=== PATIENT | female | born 1990 | race Caucasian/White ===

== ENCOUNTER 2020-11-14 13:00 | Outpatient (REF) | payer MEDICAID, SELFPAY | END 2020-11-14 13:01 | disposition home or self-care (01) | LOC: HO.LAB 13:00 | PROVIDERS: Visit Provider Internal Medicine | DX: Z20.828 Contact with and (suspected) exposure to other viral communicable diseases (principal) | CPT/HCPCS: C9803; U0003 ==

== ENCOUNTER → 2021-01-12 12:41 | Outpatient (BNVA) | payer MEDICAID, SELFPAY | PROVIDERS: Visit Provider Nurse Practitioner Gerontology | DX: E11.65 Type 2 diabetes mellitus with hyperglycemia (principal); E78.1 Pure hyperglyceridemia; E66.09 Other obesity due to excess calories; E55.9 Vitamin D deficiency, unspecified | CPT/HCPCS: 82947; 99212 ==

== ENCOUNTER → 2021-02-12 07:39 | Outpatient (BNVA) | payer MEDICAID, SELFPAY | PROVIDERS: Visit Provider Nurse Practitioner Gerontology ==

== ENCOUNTER → 2021-04-16 08:33 | Outpatient (BNVA) | payer MEDICAID, SELFPAY | PROVIDERS: Visit Provider Nurse Practitioner Gerontology | DX: E11.9 Type 2 diabetes mellitus without complications (principal); E78.1 Pure hyperglyceridemia; E66.01 Morbid (severe) obesity due to excess calories; Z68.41 Body mass index [BMI] 40.0-44.9, adult; E55.9 Vitamin D deficiency, unspecified | CPT/HCPCS: 82947; 99212 ==

== ENCOUNTER 2021-04-16 09:28 | Outpatient (REF) | payer MEDICAID, SELFPAY ==
[2021-04-16 10:50] LABS: Cholesterol 145 mg/dL; HDL Cholesterol 37 mg/dL; LDL Cholesterol Calculated 48 mg/dl; Triglycerides 300 mg/dL
[2021-04-17 18:02] LABS: LDL Cholesterol Direct 72 mg/dL (<100)
== END 2021-04-16 09:29 | disposition home or self-care (01) ==
LOC: HO.10HDL 09:28
PROVIDERS: Visit Provider Nurse Practitioner Gerontology
DX: E11.65 Type 2 diabetes mellitus with hyperglycemia (principal)
CPT/HCPCS: 36415; 80061; 83721

== ENCOUNTER → 2021-07-30 11:20 | Outpatient (BNVA) | payer MEDICAID, SELFPAY | PROVIDERS: PCP Nurse Practitioner Family; Visit Provider Nurse Practitioner Gerontology ==

== ENCOUNTER → 2022-01-28 10:14 | Outpatient (BNVA) | payer MEDICAID, SELFPAY | PROVIDERS: PCP Nurse Practitioner Family; Visit Provider Nurse Practitioner Gerontology ==

== ENCOUNTER → 2022-09-06 09:48 | Outpatient (BNVA) | payer MEDICAID, SELFPAY | PROVIDERS: Visit Provider Internal Medicine Gastroenterology | DX: R10.13 Epigastric pain (principal) | CPT/HCPCS: 99202 ==

== ENCOUNTER 2022-11-20 09:31 | Outpatient (REF) | payer MEDICAID, SELFPAY ==
[2022-11-22 14:47] LABS: H Pylori Breath Test Negative (Negative)
== END 2022-11-20 09:32 | disposition home or self-care (01) ==
LOC: HO.LNP 09:31
PROVIDERS: Visit Provider Internal Medicine Gastroenterology
DX: Z11.2 Encounter for screening for other bacterial diseases (principal)
CPT/HCPCS: 83013

== ENCOUNTER 2024-06-08 10:12 | Outpatient (REF) | payer MEDICAID, SELFPAY ==
[2024-06-08 13:30] LABS: Anion Gap 14 (12-20); Blood Urea Nitrogen 7 mg/dL (9-16); Calcium 9.7 mg/dL (8.4-10.2); Carbon Dioxide 25 mmol/L (22-29); Chloride 103 mmol/L (96-108); Cholesterol 160 mg/dL (<200); Estimated Glomerular Filt Rate > 60; Glucose Random 207 mg/dL (60-115); HDL Cholesterol 40 mg/dL (>40); LDL Cholesterol Calculated 72 mg/dL (<100); Potassium 3.8 mmol/L (3.3-5.1); Sodium 138 mmol/L (135-145); Triglycerides 241 mg/dL (<150)
[2024-06-08 13:44] LABS: Vitamin B12 251 pg/mL (200-900)
[2024-06-09 08:33] LABS: HIV AB/AG Nonreactive (Nonreactive); HIV Num 1 0.04 S/CO (0.00-0.99); ~Hepatitis C Antibody Nonreactive (Nonreactive)
[2024-06-09 12:13] LABS: RPR Rapid Plasma Reagin NON-REACTIVE (NON-REACTIVE)
== END 2024-06-08 10:13 | disposition home or self-care (01) ==
LOC: HO.HHCL 10:12
PROVIDERS: Visit Provider Nurse Practitioner Primary Care
DX: E11.69 Type 2 diabetes mellitus with other specified complication (principal); E78.5 Hyperlipidemia, unspecified; Z11.3 Encounter for screening for infections with a predominantly sexual mode of transmission
CPT/HCPCS: 36415; 80048; 80061; 82607; 84443; 86592; 86803; 87389

== ENCOUNTER 2025-01-05 09:20 | Outpatient (REF) | payer MEDICAID, SELFPAY ==
--- OUTSIDE RECORDS SUMMARY | 2025-01-05 09:44 | XMS_ITS | Encounter Summary ---
Author Organization [email or web address] Address [address] [place] [address] 7 [place] [address] Care Team Providers Care Employment Case Manager Name Role Phone Mariam Villa Primary Care Provider [phone] Reason for Visit * Reason Comments Pre-visit Planning SDOH Screening negat tom and Tobacco screening negative Encounter Details Date Type Department Care Team ([facility] st Contact Info) Description 12/29/2024 Patient Outreach [facility] [address] [place], [place] [phone] Mariam Villa ANP [address] [place] [address] Pre-visit Planning (SDOH Screening negative and Tobacco screening negative) Social History Tobacco Use Types Packs/Day Years Used Date Smoking Tobacco: Never Smokeless Tobacco: Never Alcohol Use Standard Drinks/Week Comments Not Currently 0 (1 standard drink = 0.6 oz pur e alcohol) Depression Answer Date Recorded Patient Health Questionnaire-9 Score 7 08/11/2024 Patient Health Questionnaire-9 Score 7 08/11/2024 Last PHQ-9: Questionnaire Data Not on file 0 08/11/2024 Housing Stability Answer Date Recorded What is your housing situation today? I have [place] 02/27/[address] you li ve. Do you have problems with any of the following? None of the above 02/27/2024 Food Insecurity Answer Date Recorded Within the past 12 months, y ou worried that your food would run out before you got money to buy more: Never True 02/27/2024 Within the past 12 months,th e food you bought just didn't last and you didn't have enough money to get more: Never True Transportation Answer Date Recorded In the past 12 months, has l ack of transportation kept you from medical appts, meetings, work or from getting things needed for daily living? No 12/29/2024 Utilities Answer Date Recorded In the past 12 months, has t he electric, gas, oil or water company threatened to shut off services in your home? No 02/27/2024 Depression Answer Date Recorded Patient Health Questionnaire-2 Score 0 08/11/2024 Internet Access Answer Date Recorded Internet Access Q1 Yes 08/02/2024 Internet Access Q2 Not on file 08/02/2024 Comments No Sex and Gender Information Value Date Recorded Sex Assigned at Female 09/30/2022 10:22 AM EDT Legal Sex Female 10:22 AM EDT Gender Identity Female 09/30/2022 10:22 AM EDT Sexual Orientation Straight 09/30/2022 10 :22 AM EDT documented as of this encounter Progress Notes * Silvia Spear - 12/29/2024 3:13 PM EST CC Silvia Baum placed successful outbound call to patient for pre-visit planning. Patient name and confirmed. Patient confirms appt date and time, and has transportation arrangements. Biggest concern for appointment at this time is no concerns. Patient advised to bring to appointment a photo id and insurance card. Appropriate screenings completed in anticipation of appointment. documented in this encounter Plan of Treatment Upcoming Encounters Date Type Department Care Team (Late st Contact Info) Description 01/11/2025 11:30 AM EST Office Visit [facility] [address] [place] [address] Mariam Villa ANP [address] [place] [address] documented as of this encounter Visit Diagnoses Not on filedocumented in this encounter Additional Health Concerns Assessment Noted Time PHQ-9 Depression Total Score: 7 08/11/20 24 4:10 PM EDT documented as of this encounter Care Teams Employment Case Manager Relationship Specialty Start Date End Date Mariam Villa ANP [address] [place] [address] PCP - General Family Medicine 07/31/20 documented as of this encounter
--- OUTSIDE RECORDS SUMMARY | 2025-01-05 09:44 | XMS_ITS | Clinical Summary ---
Author Organization [facility] ity Address [address] [place] [address] Care Team Providers Care Wreath Machine Tender Name Role Phone Unavailable Primary Care Provider Unavailabl e Social History Tobacco Use Types Packs/Day Years Used Date Smoking Tobacco: Never Assessed Sex and Gender Information Value Date Recorded Sex Assigned at Not on file Gender Identity Not on file Sexual Orientation Not on file Plan of Treatment Health Maintenance Due Date Last Done Comments DTaP,Tdap,and Td Vaccines (1 - Tdap) 2010 Hepatitis B Vaccines (1 of 3 - 19+ 3-dose series) 2010 Cervical Cancer Screening: P ap Smear 2012 COVID-19 Vaccine (2023-2 5 season) 2024 Influenza Vaccine (#1) 2024 HIB Vaccines Aged Out No longer eligi ble based on patient's age to complete this topic HPV Vaccines Aged Out No longer eligi ble based on patient's age to complete this topic Hepatitis A Vaccines Aged Out No long er eligible based on patient's age to complete this topic IPV Vaccines Aged Out No longer eligi ble based on patient's age to complete this topic MMR Vaccines Aged Out No longer eligi ble based on patient's age to complete this topic Meningococcal ACWY Vaccine Aged Out N o longer eligible based on patient's age to complete this topic Pneumococcal Vaccine: Pediat rics (0 to 5 Years) and At-Risk Patients (6 to 64 Years) Aged Out No longer eligible b ased on patient's age to complete this topic RSV Immunization Patients Un braulio 20 months Aged Out No longer eligible b ased on patient's age to complete this topic Varicella Vaccines Aged Out No longer eligible based on patient's age to complete this topic
--- OUTSIDE RECORDS SUMMARY | 2025-01-05 09:44 | XMS_ITS | Encounter Summary ---
Author Organization [employer] [facility] Address [address] [place] [address] [address] [place] [address] Care Team Providers Care Genetic Physician Name Role Phone Mariam Villa Primary Care Provider [phone] Encounter Details Date Type Department Care Team (Late st Contact Info) Description 01/01/2023 Orders Only [facility] [address] [place] [phone] Laura Murphy LPN Social History Tobacco Use Types Packs/Day Years Used Date Smoking Tobacco: Never Smokeless Tobacco: Never Alcohol Use Standard Drinks/Week Comments Not Currently 0 (1 standard drink = 0.6 oz pur e alcohol) PHQ-2 Answer Date Recorded Patient Health Questionnaire-2 Score 0 12/30/2022 Depression Answer Date Recorded Patient Health Questionnaire-2 Score 0 12/30/2022 Comments Unknown Sex and Gender Information Value Date Recorded Sex Assigned at Female 09/30/2022 10:22 AM EDT Legal Sex Female 10:22 AM EDT Gender Identity Female 09/30/2022 10:22 AM EDT Sexual Orientation Straight 09/30/2022 10 :22 AM EDT COVID-19 Exposure Response Date Recorded In the last 10 days, have yo u been in contact with someone who was confirmed or suspected to have Coronavirus/COVID-19? No / Unsure 12/30/2022 2:27 PM EST documented as of this encounter Plan of Treatment Upcoming Encounters Date Type Department Care Team (Late st Contact Info) Description 01/11/2025 11:30 AM EST Office Visit [facility] [address] [place] [phone] Mariam Villa ANP [address] [place], [place] [phone] documented as of this encounter Visit Diagnoses Not on filedocumented in this encounter Care Teams Genetic Physician Relationship Specialty Start Date End Date Mariam Villa ANP [address] [place] [address] PCP - General Family Medicine 07/31/20 documented as of this encounter
--- OUTSIDE RECORDS SUMMARY | 2025-01-05 09:44 | XMS_ITS | Clinical Summary ---
Author Organization [employer] Address [address] [place] [address] 7 [place] [address] Care Team Providers Care Machinist Supervisor Outside Name Role Phone Mariam Villa Primary Care Provider [phone] Allergies Active Allergy Reactions Criticality Noted Date Comments Niacin Rash High 09/16/2013 Medications * This document contains information received from the source organization and may not represent a complete record from that organization. ketotifen (Zaditor) 0.025 % ophthalmic solution Administer 1 drop into affected eye(s) every 12 (twelve) hours. 020 Active FREESTYLE LITE test strip TEST BLOOD SUGAR TWICE DAILY 100 each 11 023 Active Continuous Blood Gluc Insurance Assistant (FreeStyle Ganesh 2 [place]) deviceIndication s:Type 2 diabetes mellitus with hyperlipidemia (CMS/HCC) ([facility]) 1 each 5 (five) times a day. 1 each 023 Active acetaminophen (Tylenol 8 Hour) 650 MG ER tabletIndication s:Low back pain radiating to left leg Take 2 tablets (1,300 mg) by mouth every 8 (eight) hours. 30 tablet 023 Active glucose blood (FreeStyle Precision Pal Test) test stripIndications :Type 2 diabetes mellitus with hyperlipidemia (CMS/HCC) ([facility]) Use to test blood sugar 5 times daily 100 each 12 024 2024 Active TRUEplus Lancets 33G misc TEST BLOOD SUGAR TWICE DAILY 100 each 11 024 Active metFORMIN XR (Glucophage-XR) 500 MG 24 hr tabletIndication s:Type 2 diabetes mellitus with hyperlipidemia (CMS/HCC) ([facility]) TAKE 1 TABLET BY MOUTH TWICE DAILY IN THE MORNING AND IN THE EVENING 180 tablet 2 024 Active omega-3 acid ethyl esters (Lovaza) 1 g capsuleIndicatio ns:Hypertriglyce ridemia 2 capsules twice daily 360 capsule 3 Active Continuous Glucose Sensor (FreeStyle Ganesh 2 Sensor) miscIndications: Type 2 diabetes mellitus with hyperlipidemia (CMS/HCC) ([facility]) USE DIRECTED EVERY 14 DAYS 2 each 3 Active Tresiba FlexTouch 100 UNIT/ML injectionIndicat ions:Type 2 diabetes mellitus with hyperlipidemia (CMS/HCC) ([facility]) INJECT 10 UNITS SUBCUTANEOUSLY EVERY DAY 15 mL 1 Active Semaglutide, 2 MG/DOSE, 8 MG/3ML solution pen-injectorIndi cations:Type 2 diabetes mellitus with hyperlipidemia (CMS/HCC) ([facility]) Inject 2 mg under the skin every 7 (seven) days. 3 mL 11 Active cholecalciferol VITAMIN D (Vitamin D-3) 50 MCG (1999 UT) tabletIndication s:Vitamin D deficiency TAKE 1 TABLET BY MOUTH EVERY MORNING 90 tablet 3 024 Active sertraline (Zoloft) 25 MG tabletIndication s:Anxiety TAKE 1 TABLET BY MOUTH AT BEDTIME 90 tablet 3 024 Active pioglitazone (Actos) 15 MG tabletIndication s:Type 2 diabetes mellitus with hyperlipidemia (CMS/HCC) ([facility]) TAKE 1 TABLET BY MOUTH EVERY MORNING 90 tablet 3 Active TechLite Plus [place] 32G X 4 MM miscIndications: Type 2 diabetes mellitus with hyperlipidemia (CMS/HCC) ([facility]) USE DIRECTED 100 each 11 Active cetirizine (ZyrTEC) 10 MG tabletIndication s:Nosebleed TAKE 1 TABLET BY MOUTH EVERY MORNING FOR ALLERGY 90 tablet 3 025 Active omeprazole (PriLOSEC) [address] capsule Take 1 capsule (40 mg) by mouth before breakfast. Do not crush or chew. 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 Type 2 diabetes mellitus with hyperlipidemia (CM S/HCC) 07/22/2022 Overview (08/11/2024): Lab Results Component Value Date HGBA1C 8.7 (A) 06/11/2024 HGBA1C 7.8 (A) 03/08/2024 HGBA1C 9.3 (A) 08/26/2023 Using CGM Tresiba 10 units once daily Metformin XR 1 g twice daily Pioglitazone 15 mg daily Semaglutide 1 mg subcu weekly Metabolic syndrome X 04/06/2013 Depressive disorder 09/07/2012 Hypertriglyceridemia 09/07/2012 Obesity 09/07/2012 Scar contracture 09/07/2012 Encounters Date Type Department Care Team Description 01/03/2025 Refill [facility] [address] [place] [address] Mariam Villa ANP 01/03/2025 Refill [facility] [address] [place] [address] Mariam Villa ANP Nosebleed 12/29/2024 Patient Outreach [facility] [address] [place] [address] Mariam Villa ANP Pre-visit Planning (SDOH Screening negative and Tobacco screening negative) 11/29/2024 Telephone [facility] [address] [place] [phone] Brenda Cho [place] January11/16/2024 10:00 AM EST Clinical Support [facility] [address] [place] [address] Socorro Guillen, CARLY Type 2 diabetes mellitus with hyperlipidemia (CMS/HCC) ([facility]) 11/16/2024 Travel 11/04/2024 Refill [facility] [address] [place] [address] Mariam Villa ANP Vitamin D deficiency; Anxiety; Type 2 diabetes mellitus with hyperlipidemia (CMS/HCC) (CMS/HCC) 10/05/2024 11:30 AM EST Office Visit [facility] [address] [place] [address] Mariam Villa ANP Type 2 diabetes mellitus with hyperlipidemia (CMS/HCC) ([facility]) (Primary Dx); Right wrist tendonitis; Encounter for immunization; Acute right ankle pain; Chronic diarrhea 10/05/2024 Travel from Last 3 Months Immunizations Name Administration Dates Next Due Hep B, adult 09/11/2016,04/03/2016,01/11/2016 Influenza Injectable Quadriv alant Preservative Free IIV4 MDCK 12/28/2020 Influenza injectable quadriv alent IIV4 with preservative 08/26/2017,08/19/2016,11/20/2015 Influenza injectable quadriv alent preservative free 08/26/2023,12/30/2022,10/01/2021,02/09,12/03/2018 Influenza, Split (incl. [place] antigen) 09/16/2013,09/07/2012 Influenza, seasonal, injecta ble, preservative free 10/05/2024 Moderna Covid-19 Vaccine 6+ Bivalent 12/30/2022 Pneumococcal Conjugate PCV 20 06/11/2024 Pneumococcal Polysaccharide PPSV23 12/03/2018 Tdap 04/03/2017,09/07/2012 Social History Tobacco Use Types Packs/Day Years Used Date Smoking Tobacco: Never Smokeless Tobacco: Never Tobacco Cessation:Counseling Given: Not Answered Alcohol Use Standard Drinks/Week Comments Not Currently [...] Orientation Straight 09/30/2022 10 :22 AM EDT Last Filed Vital Signs Vital Sign Reading Time Taken Comments Blood Pressure 135/81 10/05/2024 11:34 AM EST Pulse 89 10/05/2024 11:34 AM EST Temperature 36.3 ??C (97.3 ??F) 10/05/2024 11:[address] Respiratory Rate 20 06/11/2024 9:41 AM EDT Oxygen Saturation 98% 10/05/2024 11:34 AM EST Inhaled Oxygen Concentration - - Weight 111 kg (245 lb 3.2 oz) 10/05/2024 11:34 A M EST Height 158.8 cm (5' 2.5 ) 06/11/2024 9:41 AM EDT Body Mass Index 44.13 06/11/2024 9:41 AM EDT Plan of Treatment Upcoming Encounters Date Type Department Care Team (Late st Contact Info) Description 01/11/2025 11:30 AM EST Office Visit [facility] [address] [place] [address] Mariam Villa ANP [address] [place] [address] Health Maintenance Due Date Last Done Comments Eye Exam 2001 Alcohol/Substance Use Screening 2003 Diabetes: Urine Protein Screening 07/09/2023 07/09/2022, 11/21/2020 Dental Oral Exam 12/12/2023 06/10/2023, , 11/02/2012 Dental Prophylaxis 12/12/2023 06/10/2023 Dental X-Ray: Bitewings 06/11/2024 06/10/20 23, 05/09/2023, 10/16/2022, Additional history exists COVID-19 Vaccine ( season) 2024 12/30/2022, 12/08/2021, 03/06/2021 Pap Smear 11/21/2024 11/21/2021 Diabetes: Hemoglobin A1C 01/05/2025 024, 06/11/2024, 03/08/2024, Additional history exists Diabetes: Foot Exam 03/08/2025 03/08/2024, 03/08/2024, 03/08/2024, Additional history exists Family Planning (PISQ) 04/01/2025 04/01/2024 Lipid Panel 06/08/2025 06/08/2024, 02/0 12/2022, 07/09/2022, Additional history exists Depression Screening 08/11/2025 08/11/2024, 12/30/19 23 Tobacco Screening 10/05/2025 10/05/2024 Dental X-Ray: Full Mouth 10/17/2025 10/16/2022, 10/02 SDOH Screening 12/29/2025 12/29/2024 Cervical Cancer Screening 11/21/2026 HPV/Cotest 11/21/2026 11/21/2021 DTaP/Tdap/Td Vaccines (3 - Td or Tdap) 04/03/2027 04/03/2017, 09/07/2012 Zoster Vaccines (1 of 2) 2041 RSV Patients and Patients Aged 60 years or older (1 - 1-dose 75+ series) 2066 Hepatitis B Vaccines Completed 09/11/2016, 04/03/2016, 01/11/2016 HIV Screening Completed 06/08/2024 Hepatitis C Screening Completed 06/08/2024 Pneumococcal Vaccine: Pediatrics (0 to 5 Years) and At-Risk Patients (6 to 49) Years) Completed 06/11/2024, 12/03/2018 Influenza Vaccine Completed 10/05/2024, , 12/30/2022, Additional history exists HIB Vaccines Aged Out No longer eligi [...] patient's age to complete this topic Meningococcal Vaccine Aged Out No maci pablo eligible based on patient's age to complete this topic RSV under 20 months Aged Out No longe r eligible based on patient's age to complete this topic Rotavirus Vaccines Aged Out No longer eligible based on patient's age to complete this topic Procedures Procedure Name Priority Date/Time Associated Diagnosis Comments POCT GLYCATED HEMOGLOBIN, TOTAL Routine 10/05/2024 11:45 AM EST Type 2 diabetes mellitus with hyperlipidemia (CMS/HCC) ([facility]) POCT GLUCOSE Routine 10/05/2024 11:41 AM EST Type 2 diabetes mellitus with hyperlipidemia (CMS/HCC) ([facility]) HEPATITIS C AB W/REFL TO HCV RNA, QN, PCR Routine 06/08/2024 10:14 AM EDT Routine screening for STI (sexually transmitted infection) HIV 1/2 ANTIGEN/ANTIBODY, FOURTH GENERATION W/RFL Routine 06/08/2024 10:14 AM EDT Routine screening for STI (sexually transmitted infection) LIPID PANEL, STANDARD Routine 06/08/2024 10:14 AM EDT Type 2 diabetes mellitus with hyperlipidemia (CMS/HCC) ([facility]) PROPHYLAXIS - ADULT Routine 06/10/2023 2 :00 PM EDT Dental caries Gingivitis Encounter for dental examination BITEWINGS - 4 RADIOGRAPHIC IMAGES Routine 06/10/2023 2:00 PM EDT Dental caries Gingivitis Encounter for dental examination PERIODIC ORAL EVALUATION - ESTABLISHED PATIENT Routine 06/10/2023 2:00 PM EDT Dental caries Gingivitis Encounter for dental examination DIAGNOSTIC - DIAGNOSTIC IMAGING - INTRAORAL - COMPREHENSIVE SERIES OF RADIOGRAPHIC IMAGES Routine 10/16/2022 12:00 AM EST ALBUMIN, RANDOM URINE W/CREATININE Routine 07/09/2022 9:11 AM EDT THINPREP IMAGING PAP AND HPV MRNA E6/E7 WITH REFLEX TO HPV 16,18/45 Routine 11/21/2021 10:36 AM EST from Last 3 Months or Most Recently Relevant to Health Maintenance Results * (ABNORMAL) POCT HGB A1C (10/05/2024 11:45 AM EST) Hemoglobin A1C 8.6(A) 4.0 - 6.0 % QC Media Lot # [id number] Lot# Expiration Date Blood 10/05/2024 11:4 5 AM EST us Mariam Villa ANP POINT OF CARE TEST ENTER/EDIT OR DERABLES Final Result * POCT Glucose (10/05/2024 11:41 AM EST) Glucose Blood, POC 174 60 - 200 mg/dL QC Media Lot # [id number] Lot# Expiration Date ,025 Blood Capillary blood specimen / Unknown 10/05/2024 11:41 AM EST us Mariam Vlila ANP POINT OF CARE TEST ENTER/EDIT OR DERABLES Final Result * Hepatitis C Antibody with Reflex to HCV, RNA, Quantitative, Real-Time PCR (06/08/2024 10:14 AM EDT) Hepatitis C Antibody Nonreactive Nonreactive [facility] Comment:Antibodies to HCV no t detected; does not exclude early acuteHCV infection. Blood Venous blood specimen / Unknown 06/08/2024 10:14 AM EDT 06/08/2024 11:17 AM EDT us Mariam Villa ANP LAB BLOOD ORDERABLES Final Resul t [facility] [address] [place] [address] [phone] * HIV-1/2 Antigen and Antibodies, Fourth Generation, with Reflexes (06/08/2024 10:14 AM EDT) HIV AB/AG Nonreactive Nonreactive [facility] Comment:HIV-1 p24 Ag and/or HIV-1/HIV-2 Ab not detected.A test result that is nonreactive does not exclude thepossibility of exposure to or infection with HIV-1 and/orHIV-2. Nonreactive results in this assay for individualswith prior exposure to HIV-1 and/or HIV-2 may be due toantigen and antibody levels that are below the limit ofdetection of this assay.The iVengo HIV Ag/Ab Combo assay result andsupplemental assay results should be interpreted inconjunction with the patient's clinical presentation,history and other laboratory results. If the results areinconsistent with clinical evidence, additional testing issuggested to confirm the result. Blood Venous blood specimen / Unknown 06/08/2024 10:14 AM EDT 06/08/2024 11:17 AM EDT [facility] LAB BLOOD ORDERABLES Final Resul t Performing Organization Address [facility] Co de Phone Number [facility] [address] [place] [address] [phone] * (ABNORMAL) Lipid Panel, Standard (06/08/2024 10:14 AM EDT) Triglycerides 241(H) <150 mg/dL [facility] Comment:Desirable Triglyceri de: less than 150 mg/dLBorderline High Triglyceride 150-199 mg/dLHigh Triglyceride: 200-499 mg/dLVery High Triglyceride: greater than or equal to 5OO mg/dL Cholesterol 160 <200 mg/dL [facility] Comment:Desirable Cholestero l: less than 200 mg/dLBorderline High Cholesterol: 200-239 mg/dLHigh Cholesterol: greater than 239 mg/dL LDL Cholesterol Calculated 72 <100 mg/dL [facility] Comment:Desirable LDL: less than 100 mg/dLNear Optimal/Above Optimal LDL: 110- 129 mg/dLBorderline High LDL: 130-159 mg/dLHigh LDL: 160-189 mg/dLVery High LDL: greater than or equal to 190 mg/dL HDL Cholesterol 40(L) >40 mg/dL [facility] Comment:Desirable HDL: great er than 40 mg/dL Note: This HDL assay may give artificially low results in patients with liver disease. Blood Venous blood specimen / Unknown 06/08/2024 10:14 AM EDT 06/08/2024 12:50 PM EDT us Mariam Villa ANP LAB BLOOD ORDERABLES Final Resul t Performing Organization Address [facility]/ZIP Co de Phone Number [facility] [address] [place] [address] [phone] * (ABNORMAL) ALBUMIN, RANDOM URINE W/CREATININE (07/09/2022 9:11 AM EDT) Microalbumin Urine 2.8 See Note: mg/dL [facility] Comment: Reference Range: ?? Reference Range Not established Microalb/Creat Ratio 55(H) <30 mcg/mg creat [facility] Comment: ?? The ADA defines abnormalities in albumin excretion as follows: ?? Albuminuria Category ?Result (mcg/mg creatinine) ?? Normal to Mildly increased ?? <30 Moderately increased ? 30-299 ?? Severely increased ? > OR = 300 ?? The ADA recommends that at least two of three specimens collected within a 3-6 month period be abnormal before considering a patient to be within a diagnostic category. Creatinine, Urine 51 20 - 275 mg/dL [facility] 07/09/2022 9:11 AM EDT us Mariam Villa ANP LAB URINE ORDERABLES Final Resul t Performing Organization Address [facility]/ZIP Co de Phone Number [facility] [address] [place] [address], * THINPREP TIS PAP AND HPV mRNA E6/E7 WITH REFLEX TO HPV 16,18/45 (11/21/2021 10:36 AM EST) Clinical Information: None given [facility] COMMENT SEE COMMENT [facility] Comment: EXPLANATORY NOTE: ? The Pap is a screening test for cervical cancer. It is ?? not a diagnostic test and is subject to false negative ?? and false positive results. It is most reliable when a ?? satisfactory sample, regularly obtained, is submitted ?? with relevant clinical findings and history, and when ?? the Pap result is evaluated along with historic and ?? current clinical information. ?? COMMENT: This Pap test has been evaluated with computer assisted technology. [facility] Food Critic: SEE COMMENT [facility] Comment: ZAN DAMON(ASCP) CT screening location: [address] ??[id number] HPV nRNA E6/E7 Not Detected Not Detected [facility] Comment: Methodology: Windows Phone Developer-Mediated Amplification This assay detects E6/E7 viral messenger RNA (mRNA) from 14 high-risk HPV types (16,18,31,33,35,39,45,51,52,56,58,59,66,68). ? The analytical performance characteristics of this assay have been determined by [employer]. The modifications have not been cleared or approved by the FDA. This assay has been validated pursuant to the CLIA regulations and is used for clinical purposes. ?? For additional information, please refer to http://education.[employer].Coravin/faq/BWZ599p4 (This link if provided for information/ educational purposes only.) Interpretation/Re sult: Negative for intraepithelial lesion or malignancy. [facility] LMP: 11/05/2021 [facility] Prev. BX: NONE GIVEN [facility] Prev. PAP: NONE GIVEN [facility] SOURCE: None given [facility] Statement Of Adequacy: SEE COMMENT [facility] Comment: Satisfactory for evaluation. Endocervical/transformation zone component present. 11/21/2021 10:3 6 AM EST Beatriz GRIDER LAB PATHOLOGY ORDERABLES Final Result [facility] [address] from Last 3 Months or Most Recently Relevant to Health Maintenance Insurance [place] [facility] MEDICAID STAND ADULT Care Teams Machinist Supervisor Outside Relationship Specialty Start Date End Date Mariam Villa ANP [address] [place] [phone] PCP - General Family Medicine 07/31/20
--- OUTSIDE RECORDS SUMMARY | 2025-01-05 09:44 | XMS_ITS | Continuity of Care Document ---
Author Organization [facility] Address [address] [place] [address] Phone Care Team Providers Care Outreach Manager Name Role Phone Sera LOUIS Godwin Unavailable Unavailabl e Allergies, Adverse Reactions, Alerts Substance Reaction Status [...] Diagnoses Date Provider Providers Copied on Encounter [facility], [address] [place] [address], [id number], [place] tel:[phone] [place] [facility] Dental examination Sep-0 201 5 Sera Connelly. [address] [place] [address], [id number] [place], [place], [id number], [place]. tel:[phone] Referring Provider: Godwin Zamora, Shelley [facility] [id number] [place], [address] . tel:[phone] [facility], [address] [place] [address], [address], [place] tel:[phone] [place] [facility] Dental examination 5 No Information [facility], [address], [place], [address], [phone] [place] Dental Dental examination 4 Sera Connelly. [address], [id number] [place], [place], [id number], . tel:[phone] Referring Provider: Godwin Arjayleenharitrisha, [address] [id number] [place], [address] . tel:[phone] [facility], [address], [place], [place], [facility], tel:[phone] [place] [facility] Dental examination 4 Lucho Morales. [address], [id number] [place], [id number], . tel:[phone] Referring Provider: Andrew Yepez, [address] [id number] [address] [place] [address], [address] . tel:[phone] Family History Family Member Type Diagnosis Age At Onset No Information Payers Payer name Insurance type Covered libertarian ID Ashleybilly catalan(patt) Talita Slide [id number] Social History Type Description Quantity Date Captured [...]
--- OUTSIDE RECORDS SUMMARY | 2025-01-05 09:44 | XMS_ITS | Encounter Summary ---
Author Organization [employer] Address [address] [facility] 7 [place] [address] Care Team Providers Care Flame Hardener Name Role Phone Mariam Villa Primary Care Provider [phone] Encounter Details Date Type Department Care Team (Late st Contact Info) Description 01/03/2025 Refill [facility] [address] [place], [place] [phone] Mariam Villa ANP [address] [place] [address] Social History Tobacco Use Types Packs/Day Years [...] AM EDT documented as of this encounter Plan of Treatment Upcoming Encounters Date Type Department Care Team (Late st Contact Info) Description 01/11/2025 11:30 AM EST Office Visit [facility] [address] [place] [phone] Mariam Villa ANP [address] [place] [address] documented as of this encounter Visit Diagnoses Not on filedocumented in this encounter Additional Health Concerns Assessment Noted Time PHQ-9 Depression Total Score: 7 08/11/20 24 4:10 PM EDT documented as of this encounter Care Teams Flame Hardener Relationship Specialty Start Date End Date Mariam Villa ANP [address] [place] [phone] PCP - General Family Medicine 07/31/20 documented as of this encounter
--- OUTSIDE RECORDS SUMMARY | 2025-01-05 09:44 | XMS_ITS | Encounter Summary ---
Author Organization [employer] Address [address] [place] [address] 7 [place] [address] Care Team Providers Care Histologic Technician Name Role Phone Mariam Villa Primary Care Provider [phone] Reason for Visit * Reason Comments Med Refill Encounter Details Date Type Department Care Team ([facility] st Contact Info) Description 01/03/2025 Refill [facility] [address] [place], [place] [phone] Mariam Villa ANP [address] [place] [address] Nosebleed Social History Tobacco Use Types Packs/Day Years [...] Description 01/11/2025 11:30 AM EST Office Visit [facility] MEDICINE [address] [place] [address] Mariam Villa ANP [address] [place] [address] documented as of this encounter Visit Diagnoses Diagnosis Nosebleed Epistaxis documented in this encounter Additional Health Concerns Assessment Noted Time PHQ-9 Depression Total Score: 7 08/11/20 24 4:10 PM EDT documented as of this encounter Care Teams Histologic Technician Relationship Specialty Start Date End Date Mariam Villa ANP [address] [place] [phone] PCP - General Family Medicine 07/31/20 documented as of this encounter
--- OUTSIDE RECORDS SUMMARY | 2025-01-05 09:45 | XMS_ITS | Encounter Summary ---
Author Organization [employer] Address [address] [place] [address] 7 [place] [address] Care Team Providers Care Candy Department Manager Name Role Phone Mariam Villa Primary Care Provider [phone] Reason for Visit * Reason Comments Med Refill Encounter Details Date Type Department Care Team ([facility] st Contact Info) Description 12/08/2023 Refill [facility] MEDICINE [address] [place], [place] [phone] Mariam Villa ANP [address] [place], [place] [phone] Vitamin D deficiency; Type 2 diabetes mellitus with hyperlipidemia ([facility]) Social History Tobacco Use Types Packs/Day Years Used Date Smoking Tobacco: Never Smokeless Tobacco: Never Alcohol Use Standard Drinks/Week Comments Not Currently 0 (1 standard drink = 0.6 oz pur e alcohol) PHQ-2 Answer Date Recorded Patient Health Questionnaire-2 Score 0 12/30/2022 Housing Stability Answer Date Recorded What is your housing situation today? I have [place] 09/15/[address] you li ve. Do you have problems with any of the following? None of the above 09/15/2023 Food Insecurity Answer Date Recorded Within the past 12 months, y ou worried that your food would run out before you got money to buy more: Never True 09/15/2023 Within the past 12 months,th e food you bought just didn't last and you didn't have enough money to get more: Never True Transportation Answer Date Recorded In the past 12 months, has l ack of transportation kept you from medical appts, meetings, work or from getting things needed for daily living? No 09/15/2023 Utilities Answer Date Recorded In the past 12 months, has t he electric, gas, oil or water company threatened to shut off services in your home? No 09/15/2023 Depression Answer Date Recorded Patient Health Questionnaire-2 [...] Office Visit [facility] MED[facility]INE [address] [place] [phone] Mariam Villa ANP [address] [place] [phone] documented as of this encounter Visit Diagnoses Diagnosis Vitamin D deficiency Type 2 diabetes mellitus with hyperlipidemia (CMS/HCC) (CMS/HCC) documented in this encounter Care Teams Candy Department Manager Relationship Specialty Start Date End Date Mariam Villa ANP [address] [place] [phone] PCP - General Family Medicine 07/31/20 documented as of this encounter
[2025-01-05 11:36] LABS: TSH reflex Free T4 1.79 uIU/mL (0.32-4.0)
[2025-01-05 11:47] LABS: Creatinine Urine 112.55 mg/dL; Microalbum/Creatinine Ratio Ur 7.9 ug/mg cr (<30)
== END 2025-01-05 09:21 | disposition home or self-care (01) ==
LOC: HO.HHCL 09:20
PROVIDERS: Visit Provider Nurse Practitioner Primary Care
DX: E11.69 Type 2 diabetes mellitus with other specified complication (principal); E78.5 Hyperlipidemia, unspecified
CPT/HCPCS: 36415; 82043; 82570; 84443

== ENCOUNTER 2025-04-12 11:15 | Outpatient (REF) | payer MEDICAID, SELFPAY ==
--- OUTSIDE RECORDS SUMMARY | 2025-04-12 12:43 | XMS_ITS | Encounter Summary ---
Author Organization [employer] Address [address] [facility] 7 [place] [address] Care Team Providers Care Quill Skinner Name Role Phone Mariam Villa Primary Care Provider [phone] Reason for Visit * Reason Onset Date Comments Prior Authorization 04/11/2025 Encounter Details Date Type Department Care Team (Late st Contact Info) Description 04/11/2025 Telephone [facility] MEDICINE [address] [place], [place] [phone] Mariam Villa ANP [address] [place] [address] Prior Authorization Social History Tobacco Use Types Packs/Day Years [...] AM EDT documented as of this encounter Miscellaneous Notes * Telephone Encounter - Halley Stroud RN - 04/11/2025 4:14 PM EDT Faxed signed packet to [employer], confirmation received. * Telephone Encounter - Halley Stroud RN - 04/11/2025 1:30 PM EDT Prepared CGM packet, placed on PCP desk for signature. * Telephone Encounter - Halley Stroud RN - 04/11/2025 1:29 PM EDT ----- Message from Mariam Villa sent at 04/11/2025 12:03 PM EDT ----- Please initiate PA for freestyle yasemin 3 plus - her freestyle 2 sensors keep falling off, even withover-sticker documented in this encounter Plan of Treatment Upcoming Encounters Date Type Department Care Team (Late st Contact Info) Description 07/04/2025 11:15 AM EDT Office Visit [facility] MEDICINE [address] [place] [phone] Mariam Villa, NAILA [address] [place] [address] documented as of this encounter Visit Diagnoses Not on filedocumented in this encounter Additional Health Concerns Assessment Noted Time PHQ-9 Depression Total Score: 7 08/11/20 24 4:10 PM EDT documented as of this encounter Care Teams Quill Skinner Relationship Specialty Start Date End Date Mariam Villa ANP [address] [place] [address] PCP - General Family Medicine 07/31/20 documented as of this encounter
--- OUTSIDE RECORDS SUMMARY | 2025-04-12 12:43 | XMS_ITS | Encounter Summary ---
Author Organization [employer] Address [address] [facility] 7t [place] [address] Care Team Providers Care Senior Hardware Engineer Name Role Phone Mariam Villa Primary Care Provider Encounter Details Date Type Department Care Team (Latest Contact Info) Description 04/11/2025 11:15 AM EDT Office Visit [facility] MEDICINE [address] [place], [place] [phone] Mariam Villa ANP [address] [place], [place] [phone] Hypertriglyceridemia (Primary Dx); Type 2 diabetes mellitus with hyperlipidemia (CMS/HCC) (CMS/HCC); Muscle cramp; Type 2 diabetes mellitus with hyperlipidemia (CMS/HCC) (CMS/HCC) Social History Tobacco Use Types Packs/Day Years [...] AM EDT documented as of this encounter Last Filed Vital Signs Vital Sign Reading Time Taken Comments Blood Pressure 129/79 04/11/2025 11:28 AM EDT Pulse 75 04/11/2025 11:28 AM EDT Temperature 36.7 ??C (98 ??F) 04/11/2025 11:28 AM EDT Respiratory Rate 20 04/11/2025 11:28 AM EDT Oxygen Saturation 98% 04/11/2025 11:28 AM EDT Inhaled Oxygen Concentration - - Weight 110 kg (242 lb) 04/11/2025 11:28 AM EDT Height 158.8 cm (5' 2.5 ) 04/11/2025 11:28 AM ED T Body Mass Index 43.56 04/11/2025 11:28 AM EDT documented in this encounter Progress Notes * NAILA Ross - 04/11/2025 11:15 AM EDT Subjective Patient ID: Katya Hernandez is a 34 y.o. female who presents for DM. HPI PMH DM, metabolic syndrome, acid reflux H/o cholecystectomy Lab Results Component Value Date HGBA1C 7.3 (A) 04/11/2025 HGBA1C 7.5 (A) 01/11/2025 HGBA1C 8.6 (A) 10/05/2024 HGBA1C 8.7 (A) 06/11/2024 Plan from last visit for reference: She does not want to switch her Ozempic to Mounjaro because she is afraid of acid reflux which I believe she did get from using Trulicity. We are currently maxed on her Ozempic dose. We will try increasing her metformin to 1 g twice daily and hopefully we will be able to stop her pioglitazone at some time in the future. She will continue to try to exercise regularly and adhere toa diabetic diet. She has had calf cramps for 3 years but they are worse more recently. She recently went [place] in the pool got cramps so bad in the pool she had to stop and people had to help her out of pool. Drinks 4 bottles water daily. She also has low back pain. Walks twice daily for 15min. Asked her to please increase this. her freestyle 2 sensors keep falling off, even with over-sticker. Review of CGM data shows most fasting in high 100's to mid-200's, no hypoglycemia. Not sexually active at present. LMP regular, lasts 2-3d. Kisha Esparza, medical art therapist, provided Tristanian interpretation. Review of Systems Constitutional: Negative for chills and fever. HENT: Negative for sore throat. Respiratory: Negative for cough and shortness of breath. Cardiovascular: Negative for chest pain. Gastrointestinal: Negative for constipation and diarrhea. Endocrine: Negative for polydipsia, polyphagia and polyuria. Genitourinary: Negative for dysuria. Musculoskeletal: Positive for arthralgias. Muscle cramps BLE Neurological: Negative for weakness and numbness. Objective BP 129/79 (BP Location: Left arm, Patient Position: Sitting, BP Cuff Size: Large adult) Pulse 75 Temp 98 ??F (36.7 ??C) (Temporal) Resp 20 Ht 5' 2.5 (1.588 m) Wt 242 lb (110 kg) SpO2 98% BMI 43.56 kg/m?? Physical Exam Vitals reviewed. Constitutional: General: She is not in acute distress. Appearance: Normal appearance. She is obese. She is not ill-appearing. HENT: Head: Normocephalic and atraumatic. Eyes: Extraocular Movements: Extraocular movements intact. Cardiovascular: Rate and Rhythm: Normal rate. Pulmonary: Effort: Pulmonary effort is normal. No accessory muscle usage or respiratory distress. Musculoskeletal: Right lower leg: No edema. Left lower leg: No edema. Comments: heel pain producible w/ calf stretch Neurological: Mental Status: She is alert and oriented to person, place, and time. Cranial Nerves: No cranial nerve deficit. Gait: Gait normal. Psychiatric: Mood and Affect: Mood normal. Behavior: Behavior normal. Assessment/Plan Diagnoses and all orders for this visit: Hypertriglyceridemia No change to meds Lifestyle recommendations to improve heart health & lower cholesterol: be as active as able, ideally exercise 150min moderate intensity or 75min vigorous intensity weekly; increase intake of vegetables, fruits, whole grains, fish. Try to minimize intake of sugary or greasy food and drink. Use olive oil or vegetable, peanut, canola, or similar oil for cooking. Decrease or stop drinking alcoholif you drink, quit/decrease smoking if you smoke. Type 2 diabetes mellitus with hyperlipidemia (CMS/HCC) ([facility]) Comments: Check b12 (on metformin), update lipids b/f f/u Orders: - POCT Glucose - POCT HGB A1C - Hepatic Function Panel; Future - Continuous Glucose Technical Solutions Engineer (FreeStyle Ganesh 3 Highland) device; 1 each Once per day. Use as directed for CGM - Continuous Glucose Sensor (FreeStyle Ganesh 3 Plus Sensor) misc; 1 each every 15 days. Apply 1 every 15 days as directed for CGM - metFORMIN XR (Glucophage-XR) 500 MG 24 hr tablet; TAKE 2 TABLETs BY MOUTH DAILY IN THE MORNING AND 1 TABLET IN THE EVENING - insulin degludec (Tresiba FlexTouch) 100 UNIT/ML injection; Inject 14 Units under the skin Once daily. Muscle cramp Cont good hydration, increase water intake, stretch daily - downward dog, calf wall stretch, towel stretch (around foot) (multiple recommendations demonstrated), check labs as below. Will consider NCS/EMG, or additional work up pending labs. Consider need for lumbar imaging. - Hepatic Function Panel; Future - Vitamin B12; Future - Magnesium; Future - Basic Metabolic Panel; Future Type 2 diabetes mellitus with hyperlipidemia (CMS/HCC) ([facility]) A1c > 7.0 which is goal Fasting elevated, most BG on CGM reader > 170 Increase metformin to 2 tabs AM, increase tresiba to 14 units Consider stopping pioglitazone at follow-up Foot exam at follow-up Eye exam No DM complications 02/25/25 - POCT Glucose - POCT HGB A1C - Hepatic Function Panel; Future - Continuous Glucose Technical Solutions Engineer (FreeStyle Ganesh 3 Highland) device; 1 each Once per day. Use as directed for CGM - Continuous Glucose Sensor (FreeStyle Ganesh 3 Plus Sensor) misc; 1 each every 15 days. Apply 1 every 15 days as directed for CGM - metFORMIN XR (Glucophage-XR) 500 MG 24 hr tablet; TAKE 2 TABLETs BY MOUTH DAILY IN THE MORNING AND 1 TABLET IN THE EVENING - insulin degludec (Tresiba FlexTouch) 100 UNIT/ML injection; Inject 14 Units under the skin Once daily. documented in this encounter Plan of Treatment Upcoming Encounters Date Type Department Care Team (Late st Contact Info) Description 07/04/2025 11:15 AM EDT Office Visit [facility] MEDICINE [address] [place], [place] [phone] Mariam Villa ANP [address] [place] [address] Scheduled Orders Name Type Priority Associated Diagnoses Orde r Schedule Hepatic Function Panel Lab Routine Type 2 diabetes mellitus with hyperlipidemia (CMS/HCC) ([facility]) Muscle cramp Expected: 04/11/2025 (Approximate), Expires: 04/11/2026 Vitamin B12 Lab Routine Muscle cramp Expected: 04/11/2025 (Approximate), Expires: 04/11/2026 Magnesium Lab Routine Muscle cramp Expected: 04/11/2025, Expires: 04/11/2026 Basic Metabolic Panel Lab Routine Muscle cramp Expected: 04/11/2025 (Approximate), Expires: 04/11/2026 documented as of this encounter Procedures Procedure Name Priority Date/Time Associated Diagnosis Comments POCT GLYCATED HEMOGLOBIN, TOTAL Routine 04/11/2025 11:34 AM EDT Type 2 diabetes mellitus with hyperlipidemia (CMS/HCC) ([facility]) POCT GLUCOSE Routine 04/11/2025 11:33 AM EDT Type 2 diabetes mellitus with hyperlipidemia (CMS/HCC) ([facility]) documented in this encounter Results * (ABNORMAL) POCT HGB A1C (04/11/2025 11:34 AM EDT) Hemoglobin A1C 7.3(A) 4.0 - 6.0 % QC Media Lot # [id number] Lot# Expiration Date , Blood 04/11/2025 11:3 4 AM EDT us Mariam YOO POINT OF CARE TEST ENTER/EDIT OR DERABLES Final Result * POCT Glucose (04/11/2025 11:33 AM EDT) Glucose Blood, POC 180 60 - 200 mg/dL QC Media Lot # [id number] Lot# Expiration Date Blood Capillary blood specimen / Unknown 04/11/2025 11:33 AM EDT us Mariam YOO POINT OF CARE TEST ENTER/EDIT OR DERABLES Final Result documented in this encounter Visit Diagnoses Diagnosis Hypertriglyceridemia- Primary Pure hyperglyceridemia Type 2 diabetes mellitus with hyperlipidemia (CMS/HCC) ([facility]/H[facility]) Muscle cramp Cramp of limb documented in this encounter Additional Health Concerns Assessment Noted Time PHQ-9 Depression Total Score: 7 08/11/20 24 4:10 PM EDT documented as of this encounter Care Teams Senior Hardware Engineer Relationship Specialty Start Date End Date Mariam Villa ANP [address] [place] [phone] PCP - General Family Medicine 07/31/20 documented as of this encounter
--- OUTSIDE RECORDS SUMMARY | 2025-04-12 12:43 | XMS_ITS | Clinical Summary ---
Author Organization [employer] Address [address] [place] [address] 7t [place] [address] Care Team Providers Care Digital Proofing And Platemaker Name Role Phone Mariam Villa Primary Care Provider [phone] Allergies Active Allergy Reactions Criticality Noted Date [...] each 11 023 Active Continuous Blood Gluc Truck Shop Mechanic (FreeStyle Ganesh 2 [place]) deviceIndication s:Type 2 diabetes mellitus with hyperlipidemia (CMS/HCC) ([facility]) 1 each 5 (five) times a day. 1 each 023 Active acetaminophen (Tylenol 8 Hour) 650 MG ER tabletIndication s:Low back pain radiating to left leg Take 2 tablets (1,300 mg) by mouth every 8 (eight) hours. 30 tablet 023 Active TRUEplus Lancets 33G misc TEST BLOOD SUGAR TWICE DAILY 100 each 11 024 Active omega-3 acid ethyl esters (Lovaza) 1 g capsuleIndicatio ns:Hypertriglyce ridemia 2 capsules twice daily 360 capsule 3 024 Active Semaglutide, 2 MG/DOSE, 8 MG/3ML solution pen-injectorIndi cations:Type 2 diabetes mellitus with hyperlipidemia (CMS/HCC) (CMS/HCC) Inject 2 mg under the skin every 7 (seven) days. 3 mL 11 024 Active cholecalciferol VITAMIN D (Vitamin D-3) 50 MCG (1999) tabletIndication s:Vitamin D deficiency TAKE 1 TABLET BY MOUTH EVERY MORNING 90 tablet 3 024 Active sertraline (Zoloft) 25 MG tabletIndication s:Anxiety TAKE 1 TABLET BY MOUTH AT BEDTIME 90 tablet 3 024 Active pioglitazone (Actos) 15 MG tabletIndication s:Type 2 diabetes mellitus with hyperlipidemia (CMS/HCC) ([facility]) TAKE 1 TABLET BY MOUTH EVERY MORNING 90 tablet 3 024 Active TechLite Plus Pen [place] 32G X 4 MM miscIndications: Type 2 diabetes mellitus with hyperlipidemia (CMS/HCC) ([facility]) USE DIRECTED 100 each 11 024 Active cetirizine (ZyrTEC) 10 MG tabletIndication s:Nosebleed TAKE 1 TABLET BY MOUTH EVERY MORNING FOR ALLERGY 90 tablet 3 025 Active omeprazole (PriLOSEC) [address] capsule Take 1 capsule (40 mg) by mouth before breakfast. Do not crush or chew. 90 capsule 3 025 Active Continuous Glucose Sensor (FreeStyle Ganesh 2 Sensor) miscIndications: Type 2 diabetes mellitus with hyperlipidemia (CMS/HCC) ([facility]) USE DIRECTED TO TEST BLOOD SUGAR CHANGE EVERY 14 DAYS 2 each 3 025 Active ketoconazole (NIZOral) 2 % shampooIndicatio ns:Seborrheic dermatitis APPLY TOPICALLY TO THE AFFECTED AREA(S) 3 TIMES A WEEK DIRECTED 240 mL 1 025 Active Continuous Glucose Truck Shop Mechanic (FreeStyle Ganesh 3 [place]) deviceIndication s:Type 2 diabetes mellitus with hyperlipidemia (CMS/HCC) ([facility]) 1 each Once per day. Use as directed for CGM 1 each 025 Active Continuous Glucose Sensor (FreeStyle Ganesh 3 Plus Sensor) miscIndications: Type 2 diabetes mellitus with hyperlipidemia (CMS/HCC) ([facility]) 1 each every 15 days. Apply 1 every 15 days as directed for CGM 2 each 11 025 Active metFORMIN XR (Glucophage-XR) 500 MG 24 hr tabletIndication s:Type 2 diabetes mellitus with hyperlipidemia (CMS/HCC) ([facility]) TAKE 2 TABLETs BY MOUTH DAILY IN THE MORNING AND 1 TABLET IN THE EVENING 360 tablet 1 025 Active insulin degludec (Tresiba FlexTouch) 100 UNIT/ML injectionIndicat ions:Type 2 diabetes mellitus with hyperlipidemia (CMS/HCC) ([facility]) Inject 14 Units under the skin Once daily. 15 mL 1 025 Active Continuous Glucose Sensor (FreeStyle Ganesh 2 Sensor) miscIndications: Type 2 diabetes mellitus with hyperlipidemia (CMS/HCC) ([facility]) USE DIRECTED EVERY 14 DAYS 2 each 3 024 2024 Discontinued Tresiba FlexTouch 100 UNIT/ML injectionIndicat ions:Type 2 diabetes mellitus with hyperlipidemia (CMS/HCC) ([facility]) INJECT 10 UNITS SUBCUTANEOUSLY EVERY DAY 15 mL 1 024 2024 Discontinued(R eorder (will not trigger notification to Pharmacy)) metFORMIN XR (Glucophage-XR) 500 MG 24 hr tabletIndication s:Type 2 diabetes mellitus with hyperlipidemia (CMS/HCC) ([facility]) TAKE 1 TABLET BY MOUTH TWICE DAILY IN THE MORNING AND IN THE EVENING 360 tablet 1 025 2024 Discontinued(R eorder (will not trigger notification to Pharmacy)) ketoconazole (NIZOral) 2 % shampooIndicatio ns:Seborrheic dermatitis Apply topically 3 (three) times a week. 240 mL 1 025 2024 Discontinued Active Problems Problem Noted Date [...] Encounters Date Type Department Care Team Description 04/11/2025 11:15 AM EDT Office Visit [facility] [place] [address] Mariam Villa ANP Hypertriglyceridemia (Primary Dx); Type 2 diabetes mellitus with hyperlipidemia (CMS/HCC) ([facility]); Muscle cramp; Type 2 diabetes mellitus with hyperlipidemia (CMS/HCC) ([facility]/HCC) 04/11/2025 Telephone [facility] [place] [address] Mariam Villa ANP Prior Authorization 04/11/2025 Travel 04/08/2025 Telephone [facility] [place] [address] Mariam Villa ANP chartprep 03/31/2025 Telephone [facility] [place] [address] Mariam Villa ANP Chart Prep 03/18/2025 Refill [facility] [place] [address] Mariam Villa ANP Seborrheic dermatitis 03/16/2025 Refill [facility] [place] [address] Mariam Villa ANP Type 2 diabetes mellitus with hyperlipidemia (CMS/HCC) ([facility]) 02/11/2025 Population Health Risk Score [facility] () Department [address] [place] [address] [phone] Provider, Population Health Generic 02/02/2025 Travel 01/25/2025 Telephone [facility] [place] [address] Mariam Villa ANP No Show from Last 3 Months Immunizations Name Administration [...] Mass Index 43.56 04/11/2025 11:28 AM EDT Plan of Treatment Upcoming Encounters Date Type Department Care Team (Late st Contact Info) Description 07/04/2025 11:15 AM EDT Office Visit [facility] MEDICINE [address] [place], [place] [phone] Mariam Villa, ANP [address] [place] [address] Health Maintenance Due Date Last Done Comments Family Planning (PISQ) 2006 Dental Oral Exam 12/12/2023 06/10/2023, , 11/02/2012 Dental Prophylaxis 12/12/2023 06/10/2023 Dental X-Ray: Bitewings 06/11/2024 06/10/20 23, 05/09/2023, 10/16/2022, Additional history exists COVID-19 Vaccine ( season) 2024 12/30/2022, 12/08/2021, 03/06/2021 Diabetes: Foot Exam 03/08/2025 03/08/2024, 03/08/2024, 03/08/2024, Additional history exists Lipid Panel 06/08/2025 06/08/2024, 0212/2022, 07/09/2022, Additional history exists Diabetes: Hemoglobin A1C 07/12/2025 025, 01/11/2025, 10/05/2024, Additional history exists Depression Screening 08/11/2025 08/11/2024, 12/30/19 Dental X-Ray: Full Mouth 10/17/2025 10/16/2022, 10/02 Diabetes: Urine Protein Screening 01/05/2026 01/05/2025, 07/09/2022, 11/21/2020 Eye Exam 02/25/2026 Alcohol/Substance Use Screening 04/11/2026 04/11/2025 SDOH Screening 04/11/2026 04/11/2025 Tobacco Screening 04/11/2026 04/11/2025 Cervical Cancer Screening 11/21/2026 HPV/Cotest 11/21/2026 11/21/2021 Pap Smear 11/21/2026 11/21/2021 DTaP/Tdap/Td Vaccines (3 - Td [...] Type 2 diabetes mellitus with hyperlipidemia (CMS/HCC) ([facility]) POCT GLUCOSE Routine 04/11/2025 11:33 AM EDT Type 2 diabetes mellitus with hyperlipidemia (CMS/HCC) ([facility]) ALBUMIN, RANDOM URINE W/CREATININE Routine 01/05/2025 9:23 AM EST Type 2 diabetes mellitus with hyperlipidemia (CMS/HCC) ([facility]) HEPATITIS C AB W/REFL TO HCV RNA, QN, PCR Routine 06/08/2024 10:14 AM EDT Routine screening for STI (sexually transmitted infection) HIV 1/2 ANTIGEN/ANTIBODY, FOURTH GENERATION W/RFL Routine 06/08/2024 10:14 AM EDT Routine screening for STI (sexually transmitted infection) LIPID PANEL, STANDARD Routine 06/08/2024 10:14 AM EDT Type 2 diabetes mellitus with hyperlipidemia (CMS/HCC) ([facility]) PROPHYLAXIS - ADULT Routine 06/10/2023 2 :00 PM EDT Dental caries Gingivitis Encounter for dental examination BITEWINGS - 4 RADIOGRAPHIC IMAGES Routine 06/10/2023 2:00 PM EDT Dental caries Gingivitis Encounter for dental examination PERIODIC ORAL EVALUATION - ESTABLISHED PATIENT Routine 06/10/2023 2:00 PM EDT Dental caries Gingivitis Encounter for dental examination INTRAORAL - COMPLETE SERIES OF RADIOGRAPHIC IMAGES Routine 10/16/2022 12:00 AM EST THINPREP IMAGING PAP AND HPV MRNA E6/E7 WITH REFLEX TO HPV 16,18/45 Routine 11/21/2021 10:36 AM EST from Last 3 Months or Most Recently Relevant to Health Maintenance Results * (ABNORMAL) POCT HGB A1C (04/11/2025 11:34 AM EDT) Hemoglobin A1C 7.3(A) 4.0 - 6.0 % QC Media Lot # [id number] Lot# Expiration Date Blood 04/11/2025 11:3 4 AM EDT us [...] TEST ENTER/EDIT OR DERABLES Final Result * Albumin, Random Urine W/Creatinine (01/05/2025 9:23 AM EST) Creatinine, Urine 112.55 mg/dL [facility] Microalbumin Urine 9.0 mg/L [facility] Microalbum Creatinine Ratio Ur 7.9 <30 ug/mg cr [facility] Comment:Albumin/Creatinine R atio Reference Ranges: Normal: < 30 ug/mg creatinine Microalbuminuria: 30 - 300 ug/mg creatinineClinical Albuminuria: > 300 ug/mg creatinine Urine 01/05/2025 9:23 AM EST 01/05/2025 10:56 AM EST us Mariam YOO LAB URINE ORDERABLES Final Resul t [facility] [address] [place] [address] [phone] * Hepatitis C Antibody with Reflex to HCV, RNA, Quantitative, Real-Time PCR (06/08/2024 10:14 AM EDT) Hepatitis C Antibody Nonreactive Nonreactive [facility] Comment:Antibodies to HCV no t detected; does not exclude early acuteHCV infection. Blood Venous blood specimen / Unknown 06/08/2024 10:14 AM EDT 06/08/2024 11:17 AM EDT Mariam Villa ANP LAB BLOOD ORDERABLES Final Resul t Performing Organization Address [facility] Co de Phone Number [facility] [address] [place] [phone] * HIV-1/2 Antigen and Antibodies, Fourth Generation, with Reflexes (06/08/2024 10:14 AM EDT) HIV AB/AG Nonreactive Nonreactive [facility] Comment:HIV-1 p24 Ag and/or HIV-1/HIV-2 Ab not detected.A test result that is nonreactive does not exclude thepossibility of exposure to or infection with HIV-1 and/orHIV-2. Nonreactive results in this assay for individualswith prior exposure to HIV-1 and/or HIV-2 may be due toantigen and antibody levels that are below the limit ofdetection of this assay.[facility] HIV Ag/Ab Combo assay result andsupplemental assay results should be interpreted inconjunction with the patient's clinical presentation,history and other laboratory results. If the results areinconsistent with clinical evidence, additional testing issuggested to confirm the result. Blood Venous blood specimen / Unknown 06/08/2024 10:14 AM EDT 06/08/2024 11:17 AM EDT us Mariam Villa [facility] LAB BLOOD ORDERABLES Final Resul t Performing Organization Address [facility] Co de Phone Number [facility] [address] [place] [phone] [phone] * (ABNORMAL) Lipid Panel, Standard (06/08/2024 10:14 AM EDT) Triglycerides 241(H) <150 mg/dL [facility] Comment:Desirable Triglyceri de: less than 150 mg/dLBorderline High Triglyceride 150-199 mg/dLHigh Triglyceride: 200-499 mg/dLVery High Triglyceride: greater than or equal to 5OO mg/dL Cholesterol 160 <200 mg/dL [facility] Comment:Desirable Cholestero l: less than 200 mg/dLBorderline High Cholesterol: 200-239 mg/dLHigh Cholesterol: greater than 239 mg/dL LDL Cholesterol Calculated 72 <100 mg/dL [facility] Comment:Desirable LDL: less than 100 mg/dLNear Optimal/Above Optimal LDL: 110- 129 mg/dLBorderline High LDL: 130-159 mg/dLHigh LDL: 160-189 mg/dLVery High LDL: greater than or equal to 190 mg/dL HDL Cholesterol 40(L) >40 mg/dL [facility] Comment:Desirable HDL: great er than 40 mg/dL Note: This HDL assay may give artificially low results in patients with liver disease. Blood Venous blood specimen / Unknown 06/08/2024 10:14 AM EDT 06/08/2024 12:50 PM EDT Mariam Villa [facility] LAB BLOOD ORDERABLES Final Resul t [facility] [address] [place] [phone] * THINPREP TIS PAP AND HPV mRNA E6/E7 WITH REFLEX TO HPV 16,18/45 (11/21/2021 10:36 AM EST) Clinical Information: None given [facility] COMMENT SEE COMMENT [facility] [...] has been evaluated with computer assisted technology. [facility] Clay Artisan: SEE COMMENT [facility] Comment: ZAN DAMON(ASCP) CT screening location: [address] ??[phone] HPV nRNA E6/E7 Not Detected Not Detected [facility] Comment: Methodology: Window And Siding Craftsman-Mediated Amplification This assay detects E6/E7 viral messenger RNA (mRNA) from 14 high-risk HPV types (16,18,31,33,35,39,45,51,52,56,58,59,66,68). ? The analytical performance characteristics of this assay have been determined by [employer]. The modifications have not been cleared or approved by the FDA. This assay has been validated pursuant to the CLIA regulations and is used for clinical purposes. ?? For additional information, please refer to http://education.[employer]/faq/DHK330z7 (This link if provided for information/ educational purposes only.) Interpretation/Re sult: Negative for intraepithelial lesion or malignancy. [facility] LMP: 11/05/2021 [facility] Prev. BX: NONE GIVEN [facility] Prev. PAP: NONE GIVEN [facility] SOURCE: None given [facility] Statement Of Adequacy: SEE COMMENT [facility] Comment: Satisfactory for evaluation. Endocervical/transformation zone component present. 11/21/2021 10:3 6 AM EST Beatriz Carbajal CNM LAB PATHOLOGY ORDERABLES Final Result [facility] [address] from Last 3 Months or Most Recently Relevant to Health Maintenance [place] [address] [place] [address] STANDARD [place] STAND AD[place] Care Teams Digital Proofing And Platemaker Relationship Specialty Start Date End Date Mariam Villa ANP [address] [place] [phone] PCP - General Family Medicine 07/31/20
--- OUTSIDE RECORDS SUMMARY | 2025-04-12 12:43 | XMS_ITS | Encounter Summary ---
Author Organization [employer] Address [address] [facility] 7t [place] [address] Care Team Providers Care Reed Fixer Name Role Phone Mariam Villa Primary Care Provider [phone] Encounter Details Date Type Department Care Team (Latest Contact Info) Description 04/11/2025 Travel Social History Tobacco Use Types Packs/Day Years [...] Description 07/04/2025 11:15 AM EDT Office Visit [facility] MEDICINE [address] [place] [address] Mariam Villa ANP [address] [place] [address] documented as of this encounter Visit Diagnoses Not on filedocumented in this encounter Additional Health Concerns Assessment Noted Time PHQ-9 Depression Total Score: 7 08/11/20 24 4:10 PM EDT documented as of this encounter Care Teams Reed Fixer Relationship Specialty Start Date End Date Mariam Villa ANP [address] [place] [phone] PCP - General Family Medicine 07/31/20 documented as of this encounter
--- OUTSIDE RECORDS SUMMARY | 2025-04-12 12:43 | XMS_ITS | Encounter Summary ---
Author Organization [employer] [facility] Address [address] [place] [address] 7 [place] [address] Care Team Providers Care Tail End Rider Name Role Phone Mariam Villa Primary Care Provider Encounter Details Date Type Department Care Team (Late st Contact Info) Description 01/01/2023 Orders Only [facility] MEDICINE [address] [place] [address] [phone] Laura Murphy LPN Social History Tobacco Use [...] Description 07/04/2025 11:15 AM EDT Office Visit [facility] MEDICINE [address] [place] [address] [phone] Mariam Villa ANP [address] [place], [place] [phone] documented as of this encounter Visit Diagnoses Not on filedocumented in this encounter Care Teams Tail End Rider Relationship Specialty Start Date End Date Mariam Villa ANP [address] [place] [address] PCP - General Family Medicine 07/31/20 documented as of this encounter
--- OUTSIDE RECORDS SUMMARY | 2025-04-12 12:43 | XMS_ITS | Clinical Summary ---
Author Organization [facility] ity Address [address] [place] [address] Care Team Providers Care Scuba Diving Teacher Name Role Phone Unavailable Primary Care Provider Unavailabl e Social History Tobacco Use Types Packs/Day Years Used Date Smoking Tobacco: Never Assessed Comments Unknown Sex and Gender Information Value Date Recorded Sex Assigned at Not on file Legal Sex Female 3:59 AM EST Gender Identity Not on file Sexual Orientation Not on file Plan of Treatment Health Maintenance Due Date Last Done Comments DTaP,Tdap,and Td Vaccines (1 - Tdap) 2010 Hepatitis B Vaccines (1 of 3 - 19+ 3-dose series) 2010 Cervical Cancer Screening: P ap Smear 2012 COVID-19 Vaccine ( - 2023-2 5 season) 2024 Influenza Vaccine (Season Ended) 2025 HIB Vaccines Aged Out No longer eligi [...] patient's age to complete this topic Meningococcal B Vaccine Aged Out No l onger eligible based on patient's age to complete [...]
--- OUTSIDE RECORDS SUMMARY | 2025-04-12 12:43 | XMS_ITS | Encounter Summary ---
Author Organization [employer] Address [address] [facility] 7 [place] [address] Care Team Providers Care Suit Maker Name Role Phone Mariam Villa Primary Care Provider [phone] Reason for Visit * Reason Onset Date Comments chartprep 04/08/2025 Encounter Details Date Type Department Care Team (Late st Contact Info) Description 04/08/2025 Telephone [facility] MEDICINE [address] [place], [place] [phone] Mariam Villa ANP [address] [place] [address] chartprep Social History Tobacco Use Types Packs/Day Years [...] encounter Miscellaneous Notes * Telephone Encounter - Silvia Matos MA - 04/08/2025 11:32 AM EDT ..Chart Prep Labs: not done Images: not applicable Vaccines due: Covid Due Referrals: Not Applicable Screenings: Foot Exam Overdue care gaps: A1C, Glucose, Disability , and Oral Health documented in this encounter Plan of Treatment Upcoming Encounters Date Type Department Care Team (Late st Contact Info) Description 07/04/2025 11:15 AM EDT Office Visit [facility] MEDICINE [address] [place] [phone] Mariam Villa ANP [address] [place] [address] documented as of this encounter Visit Diagnoses Not on filedocumented in this encounter Additional Health Concerns Assessment Noted Time PHQ-9 Depression Total Score: 7 08/11/20 24 4:10 PM EDT documented as of this encounter Care Teams Suit Maker Relationship Specialty Start Date End Date Mariam Villa ANP [address] [place] [phone] PCP - General Family Medicine 07/31/20 documented as of this encounter
--- OUTSIDE RECORDS SUMMARY | 2025-04-12 12:43 | XMS_ITS | Continuity of Care Document ---
Author Organization [facility] Address [address] [place] [address] Phone Care Team Providers Care Buhr Mill Operator Name Role Phone Unavailable Unavailable Unavailable Allergies, [...] Diagnoses Date Provider Providers Copied on Encounter [facility], [address] [place], [address], [place] tel:[phone] [facility] Dental Dental examination 5 No Information [facility], [address] [place], [address], [place] tel:[phone] [facility] Dental Dental examination 5 No Information [facility], [address] [place], [address], [place] tel:[phone] [facility] Dental Dental examination 4 No Information [facility], [address] [place], [address], [place] tel:[phone] [facility] Dental Dental examination 4 Lucho Morales. Shelley Harris, [id number] , [place], [place], [id number], . tel:[phone] Referring Provider: Andrew Yepez, Shelley Harris [id number] [address], [place], [address] . tel:[phone] Family History Family Member Type Diagnosis Age At Onset No Information Payers Payer name Insurance type Covered republican ID Gibson catalan(patt) Talita Slide [id number] Social History Type Description Quantity Date Captured [...]
--- OUTSIDE RECORDS SUMMARY | 2025-04-12 12:43 | XMS_ITS | Encounter Summary ---
Author Organization [employer] Address [address] [facility] 7 [place] [address] Care Team Providers Care Sole Rounder Name Role Phone Mariam Villa Primary Care Provider [phone] Reason for Visit * Reason Comments Med Refill Encounter Details Date Type Department Care Team ([facility] st Contact Info) Description 12/08/[address] [facility] MED[facility]INE [address] [place], [place] [phone] Mariam Villa ANP [address] [place] [address] Vitamin D deficiency; Type 2 diabetes mellitus with hyperlipidemia ([facility]) Social History Tobacco Use Types [...] Description 07/04/2025 11:15 AM EDT Office Visit [facility] MEDICINE [address] [place], [place] [phone] Mariam Villa ANP [address] [place] [address] documented as of this encounter Visit Diagnoses Diagnosis Vitamin D deficiency Type 2 diabetes mellitus with hyperlipidemia (CMS/HCC) ([facility]/HCC) documented in this encounter Care Teams Sole Rounder Relationship Specialty Start Date End Date Mariam Villa ANP [address] [place] [address] [phone] PCP - General Family Medicine 07/31/20 documented as of this encounter
[2025-04-12 13:44] LABS: Alanine Aminotransferase 32 U/L (0-31); Albumin Level 4.1 g/dL (3.5-5.0); Alkaline Phosphatase 70 U/L (39-117); Anion Gap 14 (12-20); Aspartate Amino Transferase 50 U/L (5-31); Bilirubin Direct 0.1 mg/dL (0.0-0.5); Bilirubin Total 0.3 mg/dL (0.0-1.0); Blood Urea Nitrogen 8 mg/dL (9-16); Calcium 9.3 mg/dL (8.4-10.2); Carbon Dioxide 27 mmol/L (22-29); Chloride 101 mmol/L (96-108); Estimated Glomerular Filt Rate > 60; Glucose Random 137 mg/dL (60-115); Magnesium 1.8 mg/dL (1.6-2.6); Potassium 3.9 mmol/L (3.3-5.1); Sodium 138 mmol/L (135-145); Total Protein 7.7 g/dL (6.5-8.0)
[2025-04-12 14:14] LABS: Vitamin B12 263 pg/mL (200-900)
[2025-04-12 16:54] LABS: TSH reflex Free T4 0.92 uIU/mL (0.32-4.0)
== END 2025-04-12 11:16 | disposition home or self-care (01) ==
LOC: HO.HHCL 11:15
PROVIDERS: Visit Provider Nurse Practitioner Primary Care
DX: E11.69 Type 2 diabetes mellitus with other specified complication (principal); E78.5 Hyperlipidemia, unspecified; R25.2 Cramp and spasm
CPT/HCPCS: 36415; 80048; 80076; 82607; 83735; 84443

== ENCOUNTER 2025-09-28 10:50 | Outpatient (REF) | payer MEDICAID, SELFPAY ==
--- OUTSIDE RECORDS SUMMARY | 2015-08-09 12:30 | XMS_ITS | Continuity of Care Document ---
Author Organization [facility] vices Address [address] [place] [address] Phone Care Team Providers Care Grid Maker Name Role Phone Unavailable Unavailable Unavailable Allergies, Adverse Reactions, Alerts Substance Reaction Status Criticality No Known Allergies Active No Inform ation Medications Medication Instructions Dosage Effective Dates (start - stop) Status Comments No Drug Therapy Prescribed Procedures Procedure Date Periodic Oral Evaluation-Established Pat ient Treatment Plan Not Started Bitewings-Four Films Intraoral-Periapical First Film 015 Intraoral-Periapical Each Additional Amos m Prophylaxis-Adult Oral Hygiene Instructions Treatment Plan In Process Comprehensive Oral Evaluation-New Or Est ablished P Treatment Plans Complete Prophylaxis-Adult Oral Hygiene Instructions Treatment Plan Not Started Advance Directives Directive Yes / No Effective Date File Name No Information Encounters Encounter Description Practice Location Reason(s) For Visit Diagnoses Date Provider Providers Copied on Encounter [facility], [address] [place], [address], [place] tel:[phone] [facility] Dental Dental examination 5 No Information [facility], [address] [place], [address], [place] tel:[phone] [facility] Dental Dental examination 5 No Information [facility], [address] [place], [address], [place] tel:[phone] [facility] Dental Dental examination 4 No Information [facility], [address] [place], [address], [place] tel:[phone] [facility] Dental Dental examination 4 Lucho Morales. Shelley Harris, [id number] , [place], [place], [id number], . tel:[phone] Referring Provider: Andrew Yepez, Shelley Harris [id number], [place], [address] . tel:[phone] Family History Family Member Type Diagnosis Age At Onset No Information Payers Payer name Insurance type Covered constitution party ID Gibson catalan(patt) Talita Slide [id number] Social History Type Description Quantity Date Captured Comments Alcohol Use Details Unknown Caffeine Use Details Unknown Tobacco Use Status Never smoked tobacco 2014 Smoking Status Never smoker Non-Smoking Tobacco Use Details : No Details Available : No Details Available Sex Female Vital Signs Date / Time: Height Weight BMI Pulse Rate Blood Pressure Temperature Respiratory Rate Body Surface Area Head Circumference Head Circ. Percentile Wt./Deon. Percentile BMI percentile Pulse Ox Inhaled Ox 4:27 PM 86 /min 111/76 mm[Hg] Chief Complaint And Reason For Visit No Information Reason For Referral Reason For Referral No Information History Of Present Illness Encounter Date Complaint History Of Prese nt Illness No Information Functional Status Date Functional Assessmen t No Information Medications Administered Medication Instructions Dosage Effective Dates (start - stop) Status Comments No Drug Therapy Prescribed Instructions Date Instruction Additional Infor mation No Information Assessments Type Assessment Date No Information Patient Care Teams Name Effective Dates (start - stop) Status Members No Information
--- OUTSIDE RECORDS SUMMARY | 2025-09-28 13:39 | XMS_ITS | Encounter Summary ---
Author Organization [employer] Address [address] [place] [address] 7 [place] [address] Care Team Providers Care Medical Care Evaluation Specialist Name Role Phone Mariam Villa Primary Care Provider [phone] Encounter Details Date Type Department Care Team (Late Contact Info) Description 01/01/2023 Orders Only [address] [phone] Laura Murphy LPN Social History Tobacco Use [...] Care Team (Late st Contact Info) Description 10/04/2025 10:15 AM EST Office Visit [facility] MEDICINE [address] [place] [address] [phone] Mariam Villa ANP [address] [place] [address] [phone] documented as of this encounter Visit Diagnoses Not on filedocumented in this encounter Care Teams Medical Care Evaluation Specialist Relationship Specialty Start Date End Date Mariam Vlila ANP [address] [place] [address] PCP - General Family Medicine 07/31/20 documented as of this encounter
--- OUTSIDE RECORDS SUMMARY | 2025-09-28 13:39 | XMS_ITS | Encounter Summary ---
Author Organization [employer] Address [address] [place] [address] 7 [place] [address] Care Team Providers Care Lance Crewmember/Mlrs Sergeant Name Role Phone Mariam Villa Primary Care Provider [phone] Reason for Visit * Reason Comments Med Refill Encounter Details Date Type Department Care Team ([facility] st Contact Info) Description 12/08/2023 Refill [facility] MEDICINE [address] [place], [place] [phone] Mariam Villa ANP 230 [place] [address] Vitamin D deficiency; Type 2 diabetes mellitus with hyperlipidemia ([facility]) Social History Tobacco Use Types Packs/Day Years [...] Description 10/04/2025 10:15 AM EST Office Visit [facility] MEDICINE [address] [place] [address] Mariam Villa ANP 230 [place] [address] documented as of this encounter Visit Diagnoses Diagnosis Vitamin D deficiency Type 2 diabetes mellitus with hyperlipidemia (HCC) documented in this encounter Care Teams Lance Crewmember/Mlrs Sergeant Relationship Specialty Start Date End Date Mariam Villa ANP [address] [place] [address] PCP - General Family Medicine 07/31/20 documented as of this encounter
--- OUTSIDE RECORDS SUMMARY | 2025-09-28 13:39 | XMS_ITS | Encounter Summary ---
Author Organization [employer] Address [address] [facility] 7 [place] [address] Care Team Providers Care Team Primary Care Physician Name Role Phone Mariam Villa Primary Care Provider [phone] Reason for Visit * Reason Comments Med Refill Encounter Details Date Type Department Care Team ([facility] st Contact Info) Description 04/29/2025 Refill [facility] ADULT DENTAL 230 [place] [address] Mariam Villa ANP 230 [place] [address] Hypertriglyceridemia Social History Tobacco Use Types Packs/Day Years [...] encounter Miscellaneous Notes * Telephone Encounter - Liam Moya DMD - 05/13/2025 8:20 AM EDT It should be address to her PCP documented in this encounter Plan of Treatment Upcoming Encounters Date Type Department Care Team (Late st Contact Info) Description 10/04/2025 10:15 AM EST Office Visit [facility] MEDICINE [address] [place] [phone] Mariam Villa ANP 230 [place] [address] documented as of this encounter Visit Diagnoses Diagnosis Hypertriglyceridemia Pure hyperglyceridemia documented in this encounter Additional Health Concerns Assessment Noted Time PHQ-9 Depression Total Score: 7 08/11/20 24 4:10 PM EDT documented as of this encounter Care Teams Team Primary Care Physician Relationship Specialty Start Date End Date Mariam Villa ANP [address] [place] [address] PCP - General Family Medicine 07/31/20 documented as of this encounter
--- OUTSIDE RECORDS SUMMARY | 2025-09-28 13:39 | XMS_ITS | Clinical Summary ---
Author Organization [employer] Address [address] [place] [address] 7t [place] [address] Care Team Providers Care Supervisor Evaporator Name Role Phone Mariam Villa NAILA Primary Care Provider [phone] Allergies Active Allergy Reactions Criticality Noted Date Comments Niacin Rash High 09/16/2013 Medications * This document contains information received from the source organization and may not represent a complete record from that organization. Continuous Blood Gluc Mucker Operator (FreeStyle Ganesh 2 [place]) deviceIndications :Type 2 diabetes mellitus with hyperlipidemia (HCC) 1 each 5 (five) times a day. 1 each 05/22/20 23 Active acetaminophen (Tylenol 8 Hour) 650 MG ER tabletIndications :Low back pain radiating to left leg Take 2 tablets (1,300 mg) by mouth every 8 (eight) hours. 30 tablet 08/26/20 23 Active cholecalciferol VITAMIN D (Vitamin D-3) 50 MCG (1999 UT) tabletIndications :Vitamin D deficiency TAKE 1 TABLET BY MOUTH EVERY MORNING 90 tablet 3 11/04/20 24 Active sertraline (Zoloft) 25 MG tabletIndications :Anxiety TAKE 1 TABLET BY MOUTH AT BEDTIME 90 tablet 3 11/04/20 24 Active pioglitazone (Actos) 15 MG tabletIndications :Type 2 diabetes mellitus with hyperlipidemia (HCC) TAKE 1 TABLET BY MOUTH EVERY MORNING 90 tablet 3 11/04/20 24 Active TechLite Plus Pen [place] 32G X 4 MM miscIndications:T ype 2 diabetes mellitus with hyperlipidemia (HCC) USE DIRECTED 100 each 11 11/04/20 24 Active omeprazole (PriLOSEC) [address] capsule Take 1 capsule (40 mg) by mouth before breakfast. Do not crush or chew. 90 capsule 3 01/03/20 25 Active Continuous Glucose Sensor (FreeStyle Ganesh 2 Sensor) miscIndications:T ype 2 diabetes mellitus with hyperlipidemia (HCC) USE DIRECTED TO TEST BLOOD SUGAR CHANGE EVERY 14 DAYS 2 each 03/16/20 Active Continuous Glucose Mucker Operator (FreeStyle Ganesh 3 [place]) deviceIndications :Type 2 diabetes mellitus with hyperlipidemia (HCC) 1 each Once per day. Use as directed for CGM 1 each 04/11/20 Active Continuous Glucose Sensor (FreeStyle Ganesh 3 Plus Sensor) miscIndications:T ype 2 diabetes mellitus with hyperlipidemia (HCC) 1 each every 15 days. Apply 1 every 15 days as directed for CGM 2 each 04/11/20 Active insulin degludec (Tresiba FlexTouch) 100 UNIT/ML injectionIndicati ons:Type 2 diabetes mellitus with hyperlipidemia (HCC) Inject 14 Units under the skin Once daily. 15 mL 04/11/20 25 Active omega-3 acid ethyl esters (Lovaza) 1 g capsuleIndication s:Hypertriglyceri demia TAKE 2 CAPSULES BY MOUTH TWICE DAILY IN THE MORNING AND EVENING 360 capsule 05/25/20 Active Ketotifen Fumarate 0.035 % solution Administer 1 drop into affected eye(s) every 12 (twelve) hours if needed (itchy eyes). 10 mL 06/15/20 25 Active cetirizine (ZyrTEC) 10 MG tabletIndications :Nosebleed TAKE 1 TABLET BY MOUTH EVERY MORNING FOR ALLERGY 90 tablet 06/15/20 25 Active glucose blood (FreeStyle Precision Pal Test) test stripIndications: Type 2 diabetes mellitus with other specified complication (HCC) USE DIRECTED TO TEST BLOOD SUGAR FIVE TIMES DAILY 100 strip 06/23/20 Active TRUEplus Lancets 33G miscIndications:T ype 2 diabetes mellitus with other specified complication (HCC) USE DIRECTED TO TEST BLOOD SUGAR FIVE TIMES DAILY 100 each 06/23/20 25 Active semaglutide (Ozempic) 2 MG/1.5ML solution pen-injectorIndic ations:Type 2 diabetes mellitus with hyperlipidemia (HCC) Take 0.25mg weekly for 4 weeks then increase to 0.5mg weekly 1 each 07/04/20 25 Active famotidine (Pepcid) 20 MG tabletIndications :Epigastric pain Take 1 tablet twice daily as needed for acid reflux 60 tablet 07/04/20 25 Active Cyanocobalamin (Vitamin B-12) 1000 MCG sublingual tabletIndications :Vitamin B12 deficiency Place 1 tablet under the tongue in the morning. 90 tablet 3 07/04/20 25 Active ketoconazole (NIZOral) 2 % shampooIndication s:Seborrheic dermatitis APPLY TOPICALLY TO THE AFFECTED AREA(S) 3 TIMES PER WEEK DIRECTED 240 mL 1 08/15/20 25 Active metFORMIN XR (Glucophage-XR) 500 MG 24 hr tabletIndications :Type 2 diabetes mellitus with hyperlipidemia (HCC) TAKE 2 TABLETS BY MOUTH ONCE DAILY IN THE MORNING and TAKE 1 TABLET BY MOUTH EVERY EVENING 270 tablet 1 09/14/20 25 Active metFORMIN XR (Glucophage-XR) 500 MG 24 hr tabletIndications :Type 2 diabetes mellitus with hyperlipidemia (HCC) TAKE 2 TABLETs BY MOUTH DAILY IN THE MORNING AND 1 TABLET IN THE EVENING 360 tablet 1 04/11/20 25 2024 Discontinued Active Problems Problem Noted Date Diagnosed Date Pre-existing type 2 diabetes mellitus during in second trimester 07/21/2025 Vitamin B12 deficiency 07/04/2025 Anxiety 07/01/2024 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 Type 2 diabetes mellitus with hyperlipidemia Overview (08/11/2024): Lab Results Component Value Date HGBA1C 8.7 (A) 06/11/2024 HGBA1C 7.8 (A) 03/08/2024 HGBA1C 9.3 (A) 08/26/2023 Using CGM Tresiba 10 units once daily Metformin XR 1 g twice daily Pioglitazone 15 mg daily Semaglutide 1 mg subcu weekly Metabolic syndrome X 04/06/2013 Depressive disorder 09/07/2012 Hypertriglyceridemia 09/07/2012 Obesity 09/07/2012 Scar contracture 09/07/2012 Encounters Date Type Department Care Team Description 09/27/2025 Patient Outreach [address] [address] Mariam Villa ANP Pre-visit Planning (SDOH screening was completed on 04/11/2025) 09/14/2025 Refill [facility] MEDICINE [address] [place], [place] [phone] aMriam Villa ANP Type 2 diabetes mellitus with hyperlipidemia (HCC) 08/22/2025 11:00 AM EDT Office Visit [facility] ADULT DENTAL [address] [place] [address] Arsalan Ayala, DDS Dental caries (Primary Dx) 08/15/2025 2:30 PM EDT Office Visit [facility] ADULT DENTAL [address] [place] [address] Arsalan Ayala, DDS Dental caries (Primary Dx) 08/13/2025 Refill [facility] MEDICINE [address] [place] [address] Tabatha Campbell NP Seborrheic dermatitis 08/02/[address] [address] Mariam Villa ANP October07/21/2025 10:00 AM EDT Office Visit [facility] ADULT DENTAL [address] [place] [address] Christian Martinez Dental caries; Pain, dental 07/04/2025 11:15 AM EDT Office Visit [address] [address] Mariam Villa ANP Type 2 diabetes mellitus with hyperlipidemia (CMS/HCC) ([facility]) (Primary Dx); Hypertriglyceridemia; Metabolic syndrome X; Vitamin B12 deficiency; Epigastric pain 07/04/[address] [address] Mariam Villa ANP Prior Authorization 07/04/2025 Travel 07/01/[address] [address] Mariam Villa ANP chart prep from Last 3 Months Immunizations Immunization Administration Dates Next Due Hep B, adult [...] Sign Reading Time Taken Comments Blood Pressure 112/70 08/22/2025 10:55 AM EDT Pulse 68 07/21/2025 10:15 AM EDT Temperature 36.6 C (97.9 F) 06/15/2025 8:59 AM EDT Respiratory Rate 20 07/04/2025 11:18 AM EDT Oxygen Saturation 99% 06/15/2025 8:59 AM EDT Inhaled Oxygen Concentration - - Weight 110 kg (243 lb) 07/04/2025 11:18 AM EDT Height 158.8 cm (5' 2.5 ) 07/04/2025 11:18 AM ED T Body Mass Index 43.74 07/04/2025 11:18 AM EDT Plan of Treatment Upcoming Encounters Date Type Department Care Team (Late st Contact Info) Description 10/04/2025 10:15 AM EST Office Visit [facility] MEDICINE [address] [place], [place] [phone] Mariam Villa, ANP 230 [place] [address] Health Maintenance Due Date Last Done Comments Family Planning (PISQ) 2006 HPV Vaccines (1 - 3-dose series) 2006 Dental Oral Exam 12/12/2023 06/10/2023, , 11/02/2012 Dental Prophylaxis 12/12/2023 06/10/2023 Diabetes: Foot Exam 03/08/2025 03/08/2024, 03/08/2024, 03/08/2024, Additional history exists Lipid Panel 06/08/2025 06/08/2024, 02/0 12/2022, 07/09/2022, Additional history exists COVID-19 Vaccine ( season) 2025 12/30/2022, 12/08/2021, 03/06/2021 Influenza Vaccine (#1) 2025 , 08/26/2023, 12/30/2022, Additional history exists Depression Screening 08/11/2025 08/11/2024, 12/30/19 23 Diabetes: Hemoglobin A1C 10/04/2025 025, 04/11/2025, 01/11/2025, Additional history exists Dental X-Ray: Full Mouth 10/17/2025 10/16/2022, 10/02 Diabetes: Urine Protein Screening 01/05/2026 01/05/2025, 07/09/2022, 11/21/2020 Eye Exam 02/25/2026 Alcohol/Substance Use Screening 04/11/2026 04/11/2025 Disability Screening 04/11/2026 04/11/2025 SDOH Screening 04/11/2026 04/11/2025 Dental X-Ray: Bitewings 07/22/2026 07/21/20 25, 06/10/2023, 05/09/2023, Additional history exists Tobacco Screening 08/22/2026 08/22/2025 Cervical Cancer Screening 11/21/2026 HPV/Cotest 11/21/2026 11/21/2021 [...] Years) and At-Risk Patients (6 to 49) Years Completed 06/11/2024, 12/03/2018 HIB Vaccines Aged Out No longer eligi [...] Procedure Name Priority Date/Time Associated Diagnosis Comments CASE PRESENTATION, DETAILED AND EXTENSIVE TREATMENT PLANNING Routine 08/22/2025 11:00 AM EDT 31 ENDODONTIC THERAPY, MOLAR TOOTH Routine 08/22/2025 11:00 AM EDT 31 INTRAORAL - PERIAPICAL FIRST RADIOGRAPHIC IMAGE Routine 08/15/2025 2:30 PM EDT 31 LIMITED ORAL EVALUATION - PROBLEM FOCUSED Routine 08/15/2025 2:30 PM EDT CASE PRESENTATION, DETAILED AND EXTENSIVE TREATMENT PLANNING Routine 07/21/2025 10:00 AM EDT BITEWING - SINGLE RADIOGRAPHIC IMAGE Routine 07/21/2025 10:00 AM EDT 31 INTRAORAL - PERIAPICAL FIRST RADIOGRAPHIC IMAGE Routine 07/21/2025 10:00 AM EDT 31 PALLIATIVE (EMERGENCY) TREATMENT OF DENTAL PAIN - MINOR PROCEDURE Routine 07/21/2025 10:00 AM EDT POCT GLYCATED HEMOGLOBIN, TOTAL Routine 07/04/2025 11:21 AM EDT Type 2 diabetes mellitus with hyperlipidemia (CMS/HCC) (CMS/HCC) POCT GLUCOSE Routine 07/04/2025 11:19 AM EDT Type 2 diabetes mellitus with hyperlipidemia (CMS/HCC) (CMS/HCC) ALBUMIN, RANDOM URINE W/CREATININE Routine 01/05/2025 9:23 AM EST Type 2 diabetes mellitus with hyperlipidemia (CMS/HCC) (CMS/HCC) HEPATITIS C AB W/REFL TO HCV RNA, QN, PCR Routine 06/08/2024 10:14 AM EDT Routine screening for STI (sexually transmitted infection) HIV 1/2 ANTIGEN/ANTIBODY, FOURTH GENERATION W/RFL Routine 06/08/2024 10:14 AM EDT Routine screening for STI (sexually transmitted infection) LIPID PANEL, STANDARD Routine 06/08/2024 10:14 AM EDT Type 2 diabetes mellitus with hyperlipidemia (CMS/HCC) (CMS/HCC) PROPHYLAXIS - ADULT Routine 06/10/2023 2 :00 [...] Maintenance Results * (ABNORMAL) POCT HGB A1C (07/04/2025 11:21 AM EDT) Hemoglobin A1C 7.6(A) 4.0 - 5.7 % QC Media Lot # [id number] Lot# Expiration Date 3046 Blood 07/04/2025 11:2 1 AM EDT us Mariam YOO POINT OF CARE TEST ENTER/EDIT OR DERABLES Final Result * POCT Glucose (07/04/2025 11:19 AM EDT) Glucose Blood, POC 161 60 - 200 mg/dL QC Media Lot # [id number] Lot# Expiration Date [id number] Blood Capillary blood specimen / Unknown 07/04/2025 11:19 AM EDT us Mariam YOO POINT OF CARE TEST ENTER/EDIT OR DERABLES Final Result * Albumin, Random Urine W/Creatinine (01/05/2025 9:23 AM EST) Creatinine, Urine 112.55 mg/dL [facility] Microalbumin Urine 9.0 mg/L [facility] Microalbum Creatinine Ratio Ur 7.9 <30 ug/mg cr [facility] Comment:Albumin/Creatinine R atio Reference Ranges: Normal: < 30 ug/mg creatinine Microalbuminuria: 30 - 300 ug/mg creatinineClinical Albuminuria: > 300 ug/mg creatinine Urine 01/05/2025 9:23 AM EST 01/05/2025 10:56 AM EST Mariam Villa [facility] URINE ORDERABLES Final Resul t Performing Organization Address [facility] Co de Phone Number [facility] [address] [place] [phone] * Hepatitis C Antibody with Reflex to HCV, RNA, Quantitative, Real-Time PCR (06/08/2024 10:14 AM EDT) Hepatitis C Antibody Nonreactive Nonreactive [facility] Comment:Antibodies to HCV no t detected; does not exclude early acuteHCV infection. Blood Venous blood specimen / Unknown 06/08/2024 10:14 AM EDT 06/08/2024 11:17 AM EDT Mariam Villa [facility] BLOOD ORDERABLES Final Resul t Performing Organization Address [facility] de Phone Number [facility] [address] [place] [phone] * HIV-1/2 Antigen and Antibodies, Fourth Generation, with Reflexes (06/08/2024 10:14 AM EDT) HIV AB/AG Nonreactive Nonreactive [facility] Comment:HIV-1 p24 Ag and/or HIV-1/HIV-2 Ab not detected.A test result that is nonreactive does not exclude thepossibility of exposure to or infection with HIV-1 and/orHIV-2. Nonreactive results in this assay for individualswith prior exposure to HIV-1 and/or HIV-2 may be due toantigen and antibody levels that are below the limit ofdetection of this assay.The [employer] HIV Ag/Ab Combo assay result andsupplemental assay results should be interpreted inconjunction with the patient's clinical presentation,history and other laboratory results. If the results areinconsistent with clinical evidence, additional testing issuggested to confirm the result. Blood Venous blood specimen / Unknown 06/08/2024 10:14 AM EDT 06/08/2024 11:17 AM EDT Mariam Villa ANP LAB BLOOD ORDERABLES Final Resul t Performing Organization Address [facility] Co de Phone Number [facility] [address] [place] [phone] * (ABNORMAL) Lipid Panel, Standard (06/08/2024 10:14 AM EDT) Triglycerides 241(H) <150 mg/dL [facility] Comment:Desirable Triglyceri de: less than 150 mg/dLBorderline High Triglyceride 150-199 mg/dLHigh Triglyceride: 200-499 mg/dLVery High Triglyceride: greater than or equal to 5OO mg/dL Cholesterol 160 <200 mg/dL [facility] Comment:Desirable Cholestero l: less than 200 mg/dLBorderline High Cholesterol: 200-239 mg/dLHigh Cholesterol: greater than 239 mg/dL LDL Cholesterol Calculated 72 <100 mg/dL [facility] Comment:Desirable LDL: less than 100 mg/dLNear Optimal/Above Optimal LDL: 110- 129 mg/dLBorderline High LDL: 130-159 mg/dLHigh LDL: 160-189 mg/dLVery High LDL: greater than or equal to 190 mg/dL HDL Cholesterol 40(L) >40 mg/dL [facility] Comment:Desirable HDL: great er than 40 mg/dL Note: This HDL assay may give artificially low results in patients with liver disease. Blood Venous blood specimen / Unknown 06/08/2024 10:14 AM EDT 06/08/2024 12:50 PM EDT Mariam Villa ANP LAB BLOOD ORDERABLES Final Resul t Performing Organization Address [facility]/ZIP Co de Phone Number [facility] [address] [place] [phone] * THINPREP TIS PAP AND HPV mRNA E6/E7 WITH REFLEX TO HPV 16,18/45 (11/21/2021 10:36 AM EST) Clinical Information: None given [facility] COMMENT SEE COMMENT [facility] Comment: EXPLANATORY NOTE: The Pap is a screening test for cervical cancer. It is not a diagnostic test and is subject to false negative and false positive results. It is most reliable when a satisfactory sample, regularly obtained, is submitted with relevant clinical findings and history, and when the Pap result is evaluated along with historic and current clinical information. COMMENT: This Pap test has been evaluated with computer assisted technology. [facility] Building Maintenance Superintendent: SEE COMMENT [facility] Comment: ZAN DAMON(ASCP) CT screening location: [place] [address] HPV nRNA E6/E7 Not Detected Not Detected [facility] Comment: Methodology: Casting Machine Service Operator-Mediated Amplification This assay detects E6/E7 viral messenger RNA (mRNA) from 14 high-risk HPV types (16,18,31,33,35,39,45,51,52,56,58,59,66,68). The analytical performance characteristics of this assay have been determined by [employer]. The modifications have not been cleared or approved by the FDA. This assay has been validated pursuant to the CLIA regulations and is used for clinical purposes. For additional information, please refer to http://education.Panthe[employer]/faq/ZCP591o9 (This link if provided for information/ educational purposes only.) Interpretation/Re sult: Negative for intraepithelial lesion or malignancy. [facility] LMP: 11/05/2021 [facility] Prev. BX: NONE GIVEN [facility] Prev. PAP: NONE GIVEN [facility] SOURCE: None given [facility] Statement Of Adequacy: SEE COMMENT [facility] Comment: Satisfactory for evaluation. Endocervical/transformation zone component present. 11/21/2021 10:3 6 AM EST us Beatriz Carbajal CNM LAB PATHOLOGY ORDERABLES Final Result [facility] [address] from Last 3 Months or Most Recently Relevant to Health Maintenance Insurance [place] [employer] STAND ADULT Care Teams Supervisor Evaporator Relationship Specialty Start Date End Date Mariam Villa ANP [address] [place] [phone] PCP - General Family Medicine 07/31/20
--- OUTSIDE RECORDS SUMMARY | 2025-09-28 13:39 | XMS_ITS | Clinical Summary ---
Author Organization [facility] Address [address] [place] [address] Care Team Providers Care Administrative Appeals Tribunal Member Name Role Phone Unavailable Primary Care Provider [...] Cervical Cancer Screening: P ap Smear 2012 HPV Vaccines (1 - 3-dose SCD M series) 2018 Depression Screening 12/01/2024 COVID-19 Vaccine ( - 2023-2 5 season) 2025 Influenza Vaccine (#1) 2025 RSV Immunization Adult Patie nts (1 - 1-dose 75+ series) 2066 HIB Vaccines Aged Out No longer eligi [...] 5 Years) and At-Risk Patients (6 to 49 Years) Aged Out No longer eligible b ased on patient's age to complete this topic RSV Immunization Patients Un braulio 20 months Aged Out No longer eligible b ased on patient's age to complete this topic Varicella Vaccines Aged Out No longer eligible based on patient's age to complete this topic
--- OUTSIDE RECORDS SUMMARY | 2025-09-28 13:39 | XMS_ITS | Encounter Summary ---
Author Organization [employer] Address [address] [place] [address] 7 [place] [address] Care Team Providers Care Trumpet Teacher Name Role Phone Mariam Villa Primary Care Provider [phone] Reason for Visit * Reason Comments Pre-visit Planning SDOH screening was c ompleted on 04/11/2025 Encounter Details Date Type Department Care Team ([facility] st Contact Info) Description 09/27/[address] [facility] MEDICINE [address] [place], [place] [phone] Mariam Villa ANP [address] [place] [address] Pre-visit Planning (SDOH screening was completed on 04/11/2025) Social History Tobacco Use Types Packs/Day Years [...] encounter Progress Notes * Silvia Spear - 09/27/2025 10:23 AM EDT CC Silvia Baum placed successful outbound call to patient for pre-visit planning. Patient name and confirmed. Patient confirms appt date and time, and has transportation arrangements. Biggest concern for appointment at this time is no concerns for now. Patient advised to bring to appointment a photo id and insurance card. Appropriate screenings completed in anticipation of appointment. documented in this encounter Plan of Treatment Upcoming Encounters Date Type Department Care Team (Late st Contact Info) Description 10/04/2025 10:15 AM EST Office Visit [facility] MED[facility] [address] [place] [address] Mariam Villa ANP [address] [place] [address] documented as of this encounter Visit Diagnoses Not on filedocumented in this encounter Additional Health Concerns Assessment Noted Time PHQ-9 Depression Total Score: 7 08/11/20 24 4:10 PM EDT documented as of this encounter Care Teams Trumpet Teacher Relationship Specialty Start Date End Date Mariam Villa ANP [address] [place] [address] PCP - General Family Medicine 07/31/20 documented as of this encounter
[2025-09-28 13:46] LABS: Cholesterol 179 mg/dL (<200); HDL Cholesterol 43 mg/dL (>40); Triglycerides 256 mg/dL (<150)
[2025-09-28 14:29] LABS: Vitamin B12 526 pg/mL (200-900)
== END 2025-09-28 10:51 | disposition home or self-care (01) ==
LOC: HO.HHCL 10:50
PROVIDERS: PCP Nurse Practitioner Primary Care; Visit Provider Nurse Practitioner Primary Care
DX: E53.8 Deficiency of other specified B group vitamins (principal); E78.1 Pure hyperglyceridemia
CPT/HCPCS: 36415; 80061; 82607